=== PATIENT | female | born 1965 | race Caucasian/White ===

== ENCOUNTER 2022-10-04 10:55 | Outpatient (REF) | payer OTHER, SELFPAY ==
--- NOTE | ~2022-10-04 | XR_ITS ---
EXAMINATION: XR LUMBOSACRAL SPINE WITH OBLIQUES CLINICAL INFORMATION: Compression fracture COMPARISON: None available. TECHNIQUE: 4 views of the lumbar spine including flexion-extension views FINDINGS: There is a moderate old-appearing L4 vertebral body compression fracture. No acute fracture or dislocation. No instability on flexion-extension views. Mild disc space narrowing at L3-L4 and L5-S1. Lower lumbar spine facet arthritis. Left abdominal surgical clips. Question small left renal stone. XR/XR lumbar spine 4V min IMPRESSION: Moderate old L4 vertebral body compression fracture. Mild degenerative changes.
== END 2022-10-04 10:56 | disposition home or self-care (01) ==
LOC: HO.HOSX 10:55
PROVIDERS: PCP Internal Medicine; Visit Provider Physician Assistant
DX: S32.000A Wedge compression fracture of unspecified lumbar vertebra, initial encounter for closed fracture (principal)
CPT/HCPCS: 72110

== ENCOUNTER 2022-10-16 14:00 | Outpatient (REF) | payer OTHER, SELFPAY ==
--- NOTE | ~2022-10-16 | CT_ITS ---
EXAMINATION: CT LUMBAR SPINE WITHOUT CONTRAST CLINICAL INFORMATION: Wedge compression fracture. COMPARISON: Lumbar spine radiograph 10/04/2022. TECHNIQUE: Commercial Insulator images were obtained. CT imaging of the lumbar spine was performed without contrast. Data was reformatted into multiplanar images at the acquisition workstation. This CT examination was performed using dose optimization techniques as appropriate, variously including the following: *Automated exposure control *Adjustment of mA and/or kV according to patient size (this includes techniques or standardized protocols for targeted exams where dose is matched to indication/reason for exam; i.e. extremities or head) *Use of iterative reconstruction technique DLP; 762 mGy-cm FINDINGS: There is an old healed compression fracture of the L4 vertebral body with impaction of the upper endplate resulting in approximately 60% vertebral body height loss centrally and there is slight anterior wedging. There is buckling of the upper posterior corner of the L4 vertebral body causing indentation of the thecal sac. Vertebral heights are otherwise maintained. Alignment is normal.. There is loss of intervertebral disc height with associated hypertrophic disc osteophyte spurring and intervertebral vacuum disc phenomenon at multiple levels. Canal patency is not well assessed on this examination due to inherent limitations of CT without intrathecal contrast. There is at least mild canal stenosis at the level of L3-L4. There is also at least mild mass effect on the foraminal segment of the left L3 related to degenerative changes at L3-L4. Limited visualization of the retroperitoneal anatomy reveals chronic changes of a left nephrectomy. Psoas and paraspinal muscle groups are symmetric. CT/CT lumbar spine wo IV con IMPRESSION: There is an old healed compression fracture of the L4 vertebral body with impaction of the upper endplate resulting in approximately 60% vertebral body height loss centrally and slight anterior wedging. There is buckling of the upper posterior corner of the L4 vertebral body causing indentation of the thecal sac. Canal patency is not well assessed on this examination due to inherent limitations of CT without intrathecal contrast. There is at least mild canal stenosis at L3-L4. There is also at least mild mass effect on the foraminal segment of the left L3 related to degenerative changes at L3-L4.
== END 2022-10-16 14:01 | disposition home or self-care (01) ==
LOC: HO.CT 14:00
PROVIDERS: PCP Internal Medicine; Visit Provider Physician Assistant
DX: S32.000A Wedge compression fracture of unspecified lumbar vertebra, initial encounter for closed fracture (principal)
CPT/HCPCS: 72131

== ENCOUNTER → 2022-10-29 15:17 | Outpatient (BNVA) | payer OTHER, SELFPAY | PROVIDERS: PCP Internal Medicine; Visit Provider Physician Assistant ==

== ENCOUNTER 2023-01-21 13:58 | Outpatient (AMB) | payer OTHER, SELFPAY ==
--- NOTE | 2023-01-21 14:51 | A.SPINEOV_ITS ---
Intake Intake Visit Reasons: discuss surgery Intake Note: Ms. Cates is here today to discuss surgery. Assessment & Plan Assessment & Plan (1) Lumbar compression fracture: Code(s): S32.000A - Wedge compression fracture of unspecified lumbar vertebra, initial encounter for closed fracture Plan Dear colleague, On 01/21/2023, saw Verena Cates , who suffered a traumatic L4 burst fracture causing a mild deformity with severe back pain. For an extensive history and physical exam, I refer to the notes of my PA, Germán Head. To day we reviewed the CT scan in detail with the patient. She does have osteopenia/osteoporosis. I offered her an L4 kyphoplasty followed by an L3-L5 posterior instrumented fusion to stabilize the fracture and correct the deformity. She is scheduled for 03/18/2023. Thank you for letting me take care of your patient. Do not hesitate to call me with any questions or concerns. Thad Huertas MD, PhD Spine Fellowship Trained Neurosurgeon Director, [facility] Coding Level of Care Code Est Pt Level 2 (45278) Diagnoses Lumbar compression fracture S32.000A
== END 2023-01-21 15:16 | disposition home or self-care (01) ==
PROVIDERS: PCP Internal Medicine; Visit Provider Neurological Surgery
DX: S32.000A Wedge compression fracture of unspecified lumbar vertebra, initial encounter for closed fracture (principal)
CPT/HCPCS: 99212

== ENCOUNTER → 2023-01-21 13:58 | Outpatient (BNVA) | payer OTHER, SELFPAY | PROVIDERS: PCP Internal Medicine; Visit Provider Neurological Surgery ==

== ENCOUNTER 2023-03-18 07:23 | Inpatient (IN) | payer OTHER, SELFPAY ==
--- NOTE | 2023-03-05 | ECG_ITS ---
Test Reason : PREOP Blood Pressure : / mmHG Vent. Rate : 055 BPM Atrial Rate : 055 BPM P-R Int : 162 ms QRS Dur : 072 ms QT Int : 458 ms P-R-T Axes : 062 009 030 degrees QTc Int : 438 ms Sinus bradycardia Otherwise normal ECG No previous ECGs available Referred By: Stephanie Carbajal Electronically Signed By:FRANK LENTZ MD
[2023-03-05 12:41] VITALS: BP 130/84; PULSE 64; RESP 18; O2SAT 97; BMI 30.3
--- NOTE | 2023-03-05 13:00 | P.CONAN_ITS ---
Documented by User: Stephanie Carbajal NP 03/17/23 10:16 HPI - Anesthesia Eval Consult details Narrative: 58yo F for L4 Kyphoplasty,L3-5 Instrumented Fusion w/Pedical Screws, No recent illness No CP/SOB with walking. Any further activity limited by back pain Kidney donor (~12 years ago) / CKD listed in hx but nml Creat Thyroid disease. Controlled on levothyroxine PMFSH Active Problems Active Problems: All Active Problems (Updated 03/05/23 @ 12:19 by Mara Collins RN) Lumbar compression fracture (Acute) Past Medical History Medical History Back pain Arthritis Thyroid disease Kidney donor CKD (chronic kidney disease) stage 3, GFR 30-59 ml/min Chronic sinusitis Glaucoma Urinary incontinence Lumbar compression fracture Family History Family history of problems with anesthesia: Yes (Daughter with PONV) Surgical History Surgical History Hx of foot surgery H/O local excision of skin lesion Hx of section Hx of tonsillectomy History of nephrectomy, left H/O colonoscopy S/P anal fissurectomy History of Problems with Anesthesia: No Social History Are you a primary daycare director to a significant other at home: No Do you presently have visiting nurse or other home services: No Patient Tobacco Use Status: Never used Tobacco Use of substances other than those prescribed or required for medical reasons: No Have you been hit, kicked, punched, or otherwise hurt by someone within the past year? If so, by whom?: No Are you DNR?: No Advance Directives: No Advance Directives Information Provided: No Advance Directives on File: No Recently lost weight without trying: No Eating poorly because of decreased appetite: No Nutrition Risks: No Nutritional Risk Patient : No : No Meds Allergies Allergy/AdvReac Type Severity Reaction Status Date / Time bee pollen [bee stings] Allergy Swelling Verified 03/05/23 06:41 NSAIDS (Non-Steroidal Allergy Unknown Verified 03/05/23 06:41 Anti-Inflamma Home Medications Medication Instructions Recorded Confirmed Last Taken Type Allergy sublingual 03/05/23 03/17/23 History alendronate 70 mg tablet 70 mg PO QWEEK 03/05/23 03/05/23 03/16/23 History ascorbic acid (vitamin C) 500 mg 500 mg PO DAILY 03/05/23 03/05/23 03/11/23 History tablet (Vitamin C) cetirizine 10 mg tablet 10 mg PO BEDTIME 03/05/23 03/05/23 03/14/23 History cholecalciferol (vitamin D3) 25 25 mcg PO DAILY 03/05/23 03/05/23 03/11/23 History mcg (1,000 unit) tablet (Vitamin D3) cyanocobalamin (vitamin B-12) 1,000 mcg PO BEDTIME 03/05/23 03/05/23 03/11/23 History 1,000 mcg tablet (Vitamin B-12) epinephrine 0.3 mg/0.3 mL 0.3 mg IM DIRECTED 03/05/23 03/05/23 Unknown History injection, auto-injector fiber 1 tab PO DAILY 03/05/23 03/05/23 03/11/23 History fluocinolone 0.025 %-niacinamide 4 1 appl topical DAILY PRN Skin 03/05/23 03/05/23 Unknown History % topical cream Irritation fluticasone propionate 50 2 spray intranasal DAILY 03/05/23 03/05/23 03/17/23 History mcg/actuation nasal spray,suspension lactobacillus combination no.4 3 3,000 mmu cells PO DAILY 03/05/23 03/05/23 03/15/23 History billion cell capsule (Probiotic) levothyroxine 88 mcg tablet 88 mcg PO DAILY 03/05/23 03/05/23 03/18/23 05:00 History lysine 1,000 mg tablet 1,000 mg PO DAILY 03/05/23 03/05/23 03/11/23 History cqnenzco-xlkj-cfvt 8 mg-folic 400 1 tab PO DAILY 03/05/23 03/05/23 03/11/23 History mcg-K 50 mcg-lutein 300 mcg tablet (Multivitamin Women 50 Plus) bz-8-hkt-epa-fish oil-vit D3 300 1 cap PO DAILY 03/05/23 03/05/23 03/11/23 History mg-1,000 mg-1,000 unit capsule (Fish Oil-Vit D3) zinc acetate 50 mg (zinc) capsule 50 mg PO BEDTIME 03/05/23 03/05/23 Unknown History Exam Exam Date and Time: March 05, 2023 1300 Height,Weight and Vital Signs: Height 5 ft 6 in Weight 85.275 kg Last Vital Signs Pulse 64 03/05/23 12:41 Resp 18 03/05/23 12:41 BP 130/84 03/05/23 12:41 Pulse Ox 97 03/05/23 12:41 O2 Del Method Room Air 03/05/23 12:41 Pertinent Lab Results Pertinent Lab Results: Lab Results 03/05/23 Range/Units 13:22 WBC 8.2 (4.8-10.8) X10*3/uL RBC 4.46 (4.20-5.50) X10*6/uL Hgb 13.3 (12.0-16.0) g/dl Hct 41.3 (37.0-47.0) % MCV 92.6 (80.0-98.0) fL MCH 29.8 (27.0-33.0) pg MCHC 32.2 (31.0-35.0) g/dl RDW 13.3 (11.0-16.0) % Plt Count 376 (160-400) X10*3/uL MPV 9.9 (9.4-12.3) fL Absolute Nucleated RBC 0.000 (0.0-0.012) X10*3/uL Nucleated RBC % (auto) 0.0 (0.0-0.2) /100WBC Sodium 143 (135-145) mmol/L Potassium 4.4 (3.3-5.1) mmol/L Chloride 107 (96-108) mmol/L Carbon Dioxide 29 (22-29) mmol/L Anion Gap 11 L (12-20) BUN 19 H (9-16) mg/dL Creatinine 0.96 (0.5-1.4) mg/dL Estim Creat Clear Calc 71.9 Estimated GFR > 60 Random Glucose 85 (60-115) mg/dL Calcium 9.7 (8.4-10.2) mg/dL Narrative Narrative: EKG 02/2023 Vent. Rate : 055 BPM Atrial Rate : 055 BPM P-R Int : 162 ms QRS Dur : 072 ms QT Int : 458 ms P-R-T Axes : 062 009 030 degrees QTc Int : 438 ms Sinus bradycardia Otherwise normal ECG No previous ECGs available Airway Mallampati Class: II TM Dist: >3cm Neck ROM: Full Loose/Missing/Broken Teeth: No (crowns on sides and back) Heart: RRR Lungs: CTAB Assessment and Plan Assessment Anesthesia Assessment: Anesthesia Plan Discussed and PAT Visit Final Anesthetic Review Family History of Problems with Anesthesia: Yes (Daughter with PONV) History of Problems with Anesthesia: No Documented by User: Wilbert Bishop MD 03/18/23 08:51 PMFSH Past Medical History Medical History Back pain Arthritis Thyroid disease Kidney donor CKD (chronic kidney disease) stage 3, GFR 30-59 ml/min Chronic sinusitis Glaucoma Urinary incontinence Lumbar compression fracture Surgical History Surgical History Hx of foot surgery H/O local excision of skin lesion Hx of section Hx of tonsillectomy History of nephrectomy, left H/O colonoscopy S/P anal fissurectomy Social History Are you a primary daycare director to a significant other at home: No Do you presently have visiting nurse or other home services: No Patient Tobacco Use Status: Never used Tobacco Use of substances other than those prescribed or required for medical reasons: No Have you been hit, kicked, punched, or otherwise hurt by someone within the past year? If so, by whom?: No Are you DNR?: No Advance Directives: No Advance Directives Information Provided: No Advance Directives on File: No Recently lost weight without trying: No Eating poorly because of decreased appetite: No Nutrition Risks: No Nutritional Risk Patient : No : No Meds Allergies Allergy/AdvReac Type Severity Reaction Status Date / Time bee pollen [bee stings] Allergy Swelling Verified 03/05/23 06:41 NSAIDS (Non-Steroidal Allergy Unknown Verified 03/05/23 06:41 Anti-Inflamma Home Medications Medication Instructions Recorded Confirmed Last Taken Type Allergy sublingual 03/05/23 03/17/23 History alendronate 70 mg tablet 70 mg PO QWEEK 03/05/23 03/05/23 03/16/23 History ascorbic acid (vitamin C) 500 mg 500 mg PO DAILY 03/05/23 03/05/23 03/11/23 History tablet (Vitamin C) cetirizine 10 mg tablet 10 mg PO BEDTIME 03/05/23 03/05/23 03/14/23 History cholecalciferol (vitamin D3) 25 25 mcg PO DAILY 03/05/23 03/05/23 03/11/23 History mcg (1,000 unit) tablet (Vitamin D3) cyanocobalamin (vitamin B-12) 1,000 mcg PO BEDTIME 03/05/23 03/05/23 03/11/23 History 1,000 mcg tablet (Vitamin B-12) epinephrine 0.3 mg/0.3 mL 0.3 mg IM DIRECTED 03/05/23 03/05/23 Unknown History injection, auto-injector fiber 1 tab PO DAILY 03/05/23 03/05/23 03/11/23 History fluocinolone 0.025 %-niacinamide 4 1 appl topical DAILY PRN Skin 03/05/23 03/05/23 Unknown History % topical cream Irritation fluticasone propionate 50 2 spray intranasal DAILY 03/05/23 03/05/23 03/17/23 History mcg/actuation nasal spray,suspension lactobacillus combination no.4 3 3,000 mmu cells PO DAILY 03/05/23 03/05/23 03/15/23 History billion cell capsule (Probiotic) levothyroxine 88 mcg tablet 88 mcg PO DAILY 03/05/23 03/05/23 03/18/23 05:00 History lysine 1,000 mg tablet 1,000 mg PO DAILY 03/05/23 03/05/23 03/11/23 History zvgchadb-vvlk-laqn 8 mg-folic 400 1 tab PO DAILY 03/05/23 03/05/23 03/11/23 History mcg-K 50 mcg-lutein 300 mcg tablet (Multivitamin Women 50 Plus) ds-7-gsd-epa-fish oil-vit D3 300 1 cap PO DAILY 03/05/23 03/05/23 03/11/23 History mg-1,000 mg-1,000 unit capsule (Fish Oil-Vit D3) zinc acetate 50 mg (zinc) capsule 50 mg PO BEDTIME 03/05/23 03/05/23 Unknown History Assessment and Plan Final Anesthetic Review NPO: Yes ASA Class: II Final Preanesthetic Review: No Changes in Pt Med Stat, Meds/Allgs Chart Reviewed, Consent Obtained/Reviewed and Anes Risks/Benef Reviewed Patient Risk: Low Procedure Risk: Low Anesthetic Plan Anesthetic Plan: GA Disposition: Standard PACU
[2023-03-05 13:40] LABS: Hematocrit 41.3 % (37.0-47.0); Hemoglobin 13.3 g/dl (12.0-16.0); Mean Corpuscular HGB Conc 32.2 g/dl (31.0-35.0); Mean Corpuscular Hemoglobin 29.8 pg (27.0-33.0); Mean Corpuscular Volume 92.6 fL (80.0-98.0); Mean Platelet Volume 9.9 fL (9.4-12.3); Platelet Count 376 X10*3/uL (160-400); Red Blood Count 4.46 X10*6/uL (4.20-5.50); Red Cell Distribution Width 13.3 % (11.0-16.0); White Blood Count 8.2 X10*3/uL (4.8-10.8)
[2023-03-05 14:51] LABS: Anion Gap 11 (12-20); Blood Urea Nitrogen 19 mg/dL (9-16); Calcium 9.7 mg/dL (8.4-10.2); Carbon Dioxide 29 mmol/L (22-29); Chloride 107 mmol/L (96-108); Creatinine Clr Calc Pharmacy 71.9; Estimated Glomerular Filt Rate > 60; Glucose Random 85 mg/dL (60-115); Potassium 4.4 mmol/L (3.3-5.1); Sodium 143 mmol/L (135-145)
[2023-03-18] VITALS (16 sets, daily range): BP systolic 104–121; BP diastolic 22–74; PULSE 56–78; RESP 14–19; TEMP 36.2–37; O2SAT 93–99; BMI 29.7; BMI 32.1
--- NOTE | ~2023-03-18 | FL_ITS ---
EXAMINATION: XR FLUOROSCOPY WITH IMAGES CLINICAL INFORMATION: L4 kyphoplasty, L3-L5 instrumented fusion. COMPARISON: CT lumbar spine 05/08/2022 and lumbar spine radiographs 10/04/2022. TECHNIQUE: Fluoroscopy Supervised By: Dr. Jamison Huertas. Fluoroscopy Time: 1.7 minutes. Cumulative Dose: 131 mGy. DAP: 1.959 mGy-m2. Images: 2. FINDINGS: Two films demonstrate posterior pedicular screws from L3 through L5 with kyphoplasty cement in the L4 vertebral body. FL/FL guidance in OR IMPRESSION: Fluoroscopy provided for L3-L5 instrumented fusion. Please see Dr. Peewee Huertas' report for complete details.
[2023-03-18] MEDS: Gabapentin 300 MG CAPSULE PO (06:50)
[2023-03-18] MEDS: methocarbamoL 750 MG TABLET PO (06:50)
[2023-03-18] MEDS: Lactated Ringers 1,000 ML 100 ML IVCONT (07:22)
--- NOTE | 2023-03-18 07:23 | MHC.SHP ---
Pre-Procedural Eval Section A Date of Service: 03/18/23 The patient is an INPATIENT: No Changes since office visit: No Cold of Flu in the past 2 weeks, No New Medical Problems, No Changes in Medication and No Patient answered all questions The History & Physical has been completed within 30 days and I have reviewed it.: No Section B Chief Complaint: Wedge compression fracture of unspecified lumbar Allergies: Allergies Allergy/AdvReac Type Severity Reaction Status Date / Time bee pollen [bee stings] Allergy Swelling Verified 03/05/23 06:41 NSAIDS (Non-Steroidal Allergy Unknown Verified 03/05/23 06:41 Anti-Inflamma Review of Systems Sugical H&P ROS: Negative: Constitution, Cardiovascular, Respiratory, Neurological, Psychiatric, Hem-Onc, Allergic/Immunologic, Gastrointestinal, Genitourinary, Musculoskeletal, Integumentary, Endocrine and Eyes/Ears/Nose/Throat Exam Surgical H&P Exam: Not Evaluated: HEENT, Not Evaluated: Heart, Not Evaluated: Lungs, Not Evaluated: Extremities, Not Evaluated: Abdomen, Not Evaluated: Skin and Not Evaluated: Neurological Plan Diagnosis/Plan: Unchanged I have reviewed the history and physical and performed a pertinent physical examination on my patient. No changes have occurred unless specified. L4 kyphoplasty, L3-5 pedicle screws Time Spent With Patient Time: Total time managing care of this patient today __11.5__ minutes.
--- OUTSIDE RECORDS SUMMARY | 2023-03-18 07:34 | XMS_ITS | Continuity of Care Document ---
Author Name Unknown Organization [facility] [employer] Address [address], [address] [place] [address]- Care Team Providers Care Quality Measurement Specialist Name Role Phone Leon SORIANO, Sophie Ceballos Primary Care Phys[place] [facility] [place] [facility] [address], [address] [place] [address]- Allergies, Adverse Reactions, Alerts No Known Allergies Immunizations Given and Recorded Vaccine Date Status Refusal Reason SARS-CoV-2 (COVID-19) mRNA-1273 vaccine 07/22/20 G iven SARS-CoV-2 (COVID-19) mRNA-1273 vaccine 06/24/20 G iven tetanus-diphtheria toxoids (Td) 04/22/99 Given Medications Fiber Choice 3 times a day, 0 Refills, Maintenance, 04/01/18 10:34:00 EST Start Date: 04/01/18 Status: Ordered fluconazole 150 mg oral tablet 1 tablet = 150 mg, By Mouth, Once, Once, repeat in 72 hours, # 2 tablet, 1 Refills, Soft Stop, 04/02/18 9:54:47 EST, Tablet Start Date: 04/02/18 Status: Ordered levothyroxine 0.15 mg oral tablet 1, tablet, By Mouth, Daily, # 90 tablet, 3 Refills Start Date: 02/27/09 Stop Date: 02/22/10 Status: Ordered Mirena 52 mg intrauteral device 1 each = 52 mg, Once, date inserted 12/2013 lot number [id number], 0 Refills, Maintenance, 01/04/15 18:59:21 Start Date: 01/04/15 Status: Ordered Multivitamin Daily, 0 Refills, Maintenance, 03/08/16 11:10:02 Start Date: 03/08/16 Status: Ordered Probiotic Formula oral capsule 1 capsule, By Mouth, Daily, 0 Refills, Maintenance, 03/08/16 11:10:32 Start Date: 03/08/16 Status: Ordered Zyrtec-D 1 tablet, Daily, 0 Refills, Maintenance, 08/16/16 15:13:50 Start Date: 08/16/16 Status: Ordered Problem List Condition Confirmation Course Effective Dates Status H ealth Status Informant Allergic rhinitis Confirmed Active Anal fissurectomy Confirmed 1994 Active Bunionectomy, Left Confirmed 1998 Active DUB - Dysfunctional uterine bleeding Confirmed Active ISABELA (stress urinary incontinence, female) Confirmed Active Hypothyroidism Confirmed Active Perimenopausal Confirmed Active Tonsillectomy Confirmed 1986 Active Urinary incontinence Confirmed Active Vulvar intraepithelial neoplasia, grade III Confirmed Active Social History Social History Type Response Smoking Status Never (less than 100 in lifetime) entered on: 05/04/19 Sex Patient Care team information Personnel Name: Leon SORIANO, Sophie Ceballos Address: Address: [address] [place] [address] [place] [id number]
--- OUTSIDE RECORDS SUMMARY | 2023-03-18 07:34 | XMS_ITS | Continuity of Care Document ---
Author Name Unknown Organization [facility] [employer] Address [address], [address] [place] [address]- Care Team Providers Care Merchandise Adjustment Clerk Name Role Phone Sophie Quintero MD Primary Care Phys[id number] 05[facility]05/[facility] [employer] [facility] [address], [address] [place] [address]- Attending Physician: Fernanda Eastman MD Allergies, Adverse Reactions, Alerts Substance Reaction Severity Status NKA Active Immunizations Given and Recorded Vaccine Date Status Refusal Reason tetanus-diphtheria toxoids (Td) 04/22/99 Given Medications Fiber [...] mg, Once, date inserted 12/2013 lot number [id number], 0 Refills, Maintenance, 01/04/15 18:59:21 Start Date: 01/04/15 Status: Ordered Multivitamin Daily, 0 Refills, Maintenance, 03/08/16 11:10:02 Start Date: 03/08/16 Status: Ordered Probiotic Formula oral capsule 1 capsule, By Mouth, Daily, 0 Refills, Maintenance, 03/08/16 11:10:32 Start Date: 03/08/16 Status: Ordered Zyrtec-D 1 tablet, Daily, 0 Refills, Maintenance, 08/16/16 15:13:50 Start Date: 08/16/16 Status: Ordered Problem List Condition Effective Dates Status Health Status Inform ant Allergic rhinitis(Confirmed) Active Anal fissurectomy(Confirmed) 1994 Active Bunionectomy, Left(Confirmed) 1998 Active DUB - Dysfunctional uterine bleeding(Confirmed) Active ISABELA (stress urinary incontin ence, female)(Confirmed) Active Hypothyroidism(Confirmed) Active IUD (intrauterine device) in place 01/04/2014(Confirmed) 01/04/14 Active Perimenopausal(Confirmed) Active Tonsillectomy(Confirmed) 1986 Active Urinary incontinence(Confirmed) Active Vulvar intraepithelial neopl carri, grade III(Confirmed) Active Social History Social History Type Response Smoking Status Never (less than 100 in lifetime) entered on: 05/04/19 Sex
--- OUTSIDE RECORDS SUMMARY | 2023-03-18 07:34 | XMS_ITS | Continuity of Care Document ---
Author Name Unknown Organization [facility] [employer] Address [address], [address] [place] [address]- Care Team Providers Care Adding Machine Mechanic Name Role Phone Leon SORIANO, Sophie Ceballos Primary Care Physician [place] [facility] [place]22 - 05/30/22 [facility] [employer] [address] [place] [address]- Attending Physician: Admtr, Xenia Allergies, Adverse Reactions, Alerts No Known Allergies Immunizations Given and Recorded Vaccine Date Status Refusal Reason SARS-CoV-2 (COVID-19) mRNA-1273 vaccine 4/3/21 G iven SARS-CoV-2 (COVID-19) mRNA-1273 vaccine 3//21 G iven tetanus-diphtheria toxoids (Td) 04/22/99 Given [...] Date: 02/27/09 Stop Date: 02/22/10 Status: Ordered Multivitamin Daily, 0 Refills, Maintenance, 03/08/16 11:10:02 Start Date: 03/08/16 Status: Ordered nystatin topical [id number] u/gm cream 1 application, Topically, 2 times a day, PRN Itch, # 30 Gm, 2 Refills, Maintenance, 04/30/22 16:36:00 EST, Cream, [id number], Partial fill upon patient request if the prescription is for a schedule II opioid drug., 1 application Topically 2 ti... Start Date: 04/30/22 Status: Ordered Probiotic Formula oral capsule 1 [...] incontinence, female) Confirmed Active Hypothyroidism Confirmed Active Obese class I Confirmed Active Perimenopausal Confirmed Active Tonsillectomy Confirmed 1986 Active Urinary incontinence Confirmed Active Vulvar intraepithelial neoplasia, grade III Confirmed Active Social History Social History Type Response Smoking Status Never (less than 100 in lifetime) entered on: 05/04/19 Sex Patient Care team information Care Team Personnel Name: Sophie Quintero MD Position: [facility] Physician (General Medicine) Member Role: PCP Address: Address: [address] [place] [address]- Care Team Related Persons Name: ILEANA ROMERO Address: [address] [place] [address]
--- OUTSIDE RECORDS SUMMARY | 2023-03-18 07:34 | XMS_ITS | Continuity of Care Document ---
Author Name Unknown Organization [facility] [employer] Address [address], [address] [place] [address]- Care Team Providers Care Web Design Intern Name Role Phone Sophie Quintero MD Primary Care Physician [phone] [place] [facility] [place] 12[place] [address], [address] [place] [address]- Attending Physician: Jaren SORIANO [OB], Fernanda Hart Referring Physician: Sophie Quintreo MD Allergies, Adverse Reactions, Alerts Substance Reaction [...] mg, Once, date inserted 12/2013 lot number [id number], 0 Refills, Maintenance, 01/04/15 18:59:21 Start Date: 01/04/15 Status: Ordered Multivitamin Daily, 0 Refills, Maintenance, 03/08/16 11:10:02 Start Date: 03/08/16 Status: Ordered nystatin topical [id number] u/gm cream 1 application, Topically, 3 times a day, # 30 Gm, 3 Refills, Acute 11/29/21 9:06:00 EDT, 11/29/20 9:06:00 EDT, Cream, [id number], Partial fill upon patient request if the prescription is for a schedule II opioid drug., 1 application T... Start Date: 11/29/20 Stop Date: 11/29/21 Status: Ordered Probiotic Formula oral capsule 1 [...] urinary incontin ence, female)(Confirmed) Active Hypothyroidism(Confirmed) Active Perimenopausal(Confirmed) Active Tonsillectomy(Confirmed) 1986 Active Urinary incontinence(Confirmed) Active Vulvar intraepithelial neopl carri, grade III(Confirmed) Active Vital Signs Most recent to oldest [Reference Range]: 1 Height 168.5 cm (11/29/20 8:49 AM) Weight 90.38 kg (11/29/20 8:49 AM) Body Mass Index [18.5-24.99] 31.83 *>HHI* (11/29/20 8:49 AM) Blood Pressure [90-138/55-84 mm Hg] 131/ 78mm Hg (11/29/20 8:49 AM) Blood pressure sites Arm, right (11/29/20 8:49 AM) Weight Obtained Via Standing scale (11/29/20 8:49 AM) Social History Social History Type Response Smoking Status Never (less than 100 in lifetime) entered on: 05/04/19 Sex
--- OUTSIDE RECORDS SUMMARY | 2023-03-18 07:34 | XMS_ITS | Continuity of Care Document ---
Author Name Unknown Organization [facility] Address [address] [facility], [address] [place] [address]- Care Team Providers Care Batch Plant Supervisor Name Role Phone Leon SORIANO, Sophie Ceballos Primary Care Physician [place] [facility] [place] [facility] [address] [facility], [address] [place] [address]- Allergies, Adverse Reactions, Alerts Substance Reaction Severity [...] mg, Once, date inserted 12/2013 lot number [id number], 0 Refills, Maintenance, 01/04/15 18:59:21 Start Date: [...]
--- OUTSIDE RECORDS SUMMARY | 2023-03-18 07:34 | XMS_ITS | Continuity of Care Document ---
Author Name Unknown Organization [facility] Lydia [facility] Address [address] [place] [address], [address] [place] [address]- Care Team Providers Care Shop Clerk Name Role Phone Leon SORIANO, Sophie Ceballos Primary Care Physician [phone] [id number] [address] [facility], [address] [place] [address]- Attending Physician: Jaren SORIANO [OB], Fernanda Hart Referring Physician: Rukhsana Salinas Allergies, Adverse Reactions, Alerts No Known Allergies Immunizations Given and Recorded Vaccine Date Status Refusal Reason SARS-CoV-2 (COVID-19) mRNA-1273 vaccine 21 G iven SARS-CoV-2 (COVID-19) mRNA-1273 vaccine 06/24/20 [...] Start Date: 03/08/16 Status: Ordered nystatin topical [id number] u/gm cream 1 application, Topically, 2 times a day, PRN Itch, # 30 Gm, 2 Refills, Maintenance, 04/30/22 16:36:00 EST, Cream, [id number], Partial fill upon patient request if the [...] Vulvar intraepithelial neoplasia, grade III Confirmed Active Vital Signs Most recent to oldest [Reference Range]: 1 Height 168.5 cm (04/30/22 4:21 PM) Weight 87 kg (04/30/22 4:21 PM) Pulse Rate [55-90 bpm] 75 bpm (04/30/22 4:21 PM) Body Mass Index [18.5-24.99 kg/m2] 30.64 kg/m2 *>HHI* (04/30/22 4:21 PM) Blood Pressure [90-138/55-84 mm Hg] 124/ 70mm Hg (04/30/22 4:21 PM) Respiratory Rate [16-30 br/min] 19 br/mi n (04/30/22 4:21 PM) Blood pressure sites Arm, right (04/30/22 4:21 PM) Weight Obtained Via Standing scale (04/30/22 4:21 PM) Social History Social History Type Response Smoking Status Never (less than 100 in lifetime) entered on: 05/04/19 Sex Note * Gem Méndez: PERFORM, SIGN, VERIFY Event Display: Patient Education/Instruction Authored Date: [id number] [facility] *[facility] G[employer] T[employer]ATER Clinical Summary Name HAJDAMOWICZ, YUNIEL Age 57 Years 1965 PCP Sophie Quintero MD PCP Visit Date 04/30/2022 15:59:00 Additional Instructions: Scheduled Appointments?? Future Appointments ?No Future Appointments Scheduled Follow-Up Instructions ?? Diagnosis Menopausal and female climacteric states; Encounter for gynecological examination (general) (routine) without abnormal findings Medications: Please continue your medications until treatment is completed or stopped by your provider. Discuss any questions related to medications with your provider. New Medications [id number], [address] [place] [id number], [phone] Nystatin Topical (nystatin topical 890483 u/gm cream) 1 javi Topically twice a day as needed Itch. Refills: 2. Next Dose: Medications to Continue with No Changes These medications were not printed or sent to your pharmacy bifidobacterium-lactobacillus (Probiotic Formula oral capsule) 1 capsule Oral Daily. Next Dose: Cetirizine-Pseudoephedrine (Zyrtec-D) 1 tab(s) Daily. Next Dose: Fluconazole (fluconazole 150 mg oral tablet) 1 tab(s) Oral once. Once, repeat in 72 hours. Refills:1. Next Dose: Inulin (Fiber Choice) 3 times a day. Next Dose: Levothyroxine (levothyroxine 0.15 mg oral tablet) 1 tab(s) Oral Daily for 90 Days. Refills: 3. Next Dose: Multivitamin Daily. Next Dose: No Longer Take the Following Medications Levonorgestrel (Mirena 52 mg intrauteral device) 1 Each once. date inserted 12/2013 lot number [id number]. Allergy Info:?? NKA Medications Given This Visit Future Orders ?MM Digital Mammo Screening? Order Date:05/31/23?- Complete by?06/28/23 Vital Signs Height 168.5 cm Weight 87 kg BMI 30.64 kg/m2 Blood Pressure 124 mm Hg/70 mm Hg Temperature Pulse Rate 75 bpm Respiratory Rate 19 br/min 02 Sat Mode of Delivery / You can now view a summary of your hospital visit from the comfort of your home through a free online portal called [employer]. [employer] is a website that allows you to securely view your medical information including discharge summary, medications and follow-up visits. ??You can alsosend a secure electronic message to your doctor???s office to request appointments, renew medications or just ask a question. You can enroll at [email or web address] or register during your next office visit. Disclaimer:?? The information provided is of a general nature and is intended to be used in conjunction with the recommendations and advice of your health care practitioner. ??Every effort has been made to ensure that the information provided is accurate and complete at the time it is provided to you however, as your needs change, or, as new ??information becomes available, different or additional instructions may be required. If you have questions, please consult with your primary care provider or pharmacist, as appropriate. ??This information is not intended to serve as substitution for assessment and evaluation by a qualified health care provider. If you do not have a primary care provider, you may find a [facility] provider by calling [facility] at [phone]. For information about the plan of care including goals and instructions for your diagnosis, please see the patient education orders section of this document. Patient Education Materials?? The content of this educational material or handout may have been modified, supplemented, or adapted from its original content and format to support your individualized medical care. Please follow instructions discussed with your provider during this visit as well as any education documents you were given today. Patient Care team information Care Team Personnel Name: Sophie Quintero MD Position: [facility] Physician (General Medicine) Member Role: PCP Address: Address: [address] [place] [address] [place] [address]- Care Team Related Persons Name: ILEANA ROMERO Address: home [address] [place] [address] [place] [id number]
--- OUTSIDE RECORDS SUMMARY | 2023-03-18 07:34 | XMS_ITS | Continuity of Care Document ---
Author Name Unknown Organization [facility] Address [address] [facility], [address] [place] [address]- Care Team Providers Care Product Development Assistant Name Role Phone Leon SORIANO, Sophie Ceballos Primary Care Physician [place] [facility] [place]20 - 12/29/20 [facility] [employer] [facility] [address] [facility], [address] [place] [address]- Attending Physician: Admtr, Ar8 Allergies, Adverse Reactions, Alerts Substance Reaction Severity [...] mg, Once, date inserted 12/2013 lot number [id number], 0 Refills, Maintenance, 01/04/15 18:59:21 Start Date: 01/04/15 Status: Ordered Multivitamin Daily, 0 Refills, Maintenance, 03/08/16 11:10:02 Start Date: 03/08/16 Status: Ordered nystatin topical [id number] u/gm cream 1 application, Topically, 3 times a day, # 30 Gm, 3 Refills, Acute 11/29/21 9:06:00 EDT, 11/29/20 9:06:00 EDT, Cream, [id number], Partial fill upon patient request if the [...]
--- OUTSIDE RECORDS SUMMARY | 2023-03-18 07:34 | XMS_ITS | Continuity of Care Document ---
Author Name Unknown Organization [facility] Address [address] [facility], [address]t [place] [address]- Care Team Providers Care Showroom Salesperson Name Role Phone Sophie Quintero MD Primary Care Physician [id number] Date[facility]/04/19 - [facility]11/19 [facility] [address] [facility], [address]th [place] [address]- Attending Physician: Fernanda Eastman MD Referring Physician: Sophie Quintero MD Allergies, Adverse Reactions, Alerts Substance Reaction [...] mg, Once, date inserted 12/2013 lot number [id number], 0 Refills, Maintenance, 01/04/15 18:59:21 Start Date: [...] oldest [Reference Range]: 1 Height 168.5 cm (05/04/19 2:39 PM) Weight 87.2 kg (05/04/19 2:39 PM) Body Mass Index [18.5-24.99] 30.71 *>HHI* (05/04/19 2:39 PM) Blood Pressure [90-138/55-84 mm Hg] 112/ 75mm Hg (05/04/19 2:39 PM) Blood pressure sites Arm, right (05/04/19 2:39 PM) Weight Obtained Via Standing scale (05/04/19 2:39 PM) Social History Social History Type Response Smoking Status Never (less than 100 in lifetime) entered on: 05/04/19 Sex
--- OUTSIDE RECORDS SUMMARY | 2023-03-18 07:34 | XMS_ITS | Continuity of Care Document ---
Author Name Unknown Organization [facility] ter Address [address] [place] [address]- Care Team Providers Care Wax Ball Molder Name Role Phone Sophie Quintero MD Primary Care Physician En[place] [facility] [place] Date(s): 05/01/19 - 05/08/[address] [address]- [facility] Attending Physician: Serafin Abel MD Allergies, Adverse Reactions, Alerts Substance Reaction [...] mg, Once, date inserted 12/2013 lot number [id number], 0 Refills, Maintenance, 01/04/15 18:59:21 Start Date: [...]
--- OUTSIDE RECORDS SUMMARY | 2023-03-18 07:34 | XMS_ITS | Continuity of Care Document ---
Author Name Unknown Organization [facility] [employer] Address [address] [place] [address], [address] [place] [address]- Care Team Providers Care All Around Patternmaker Name Role Phone Leon SORIANO, Sophie Ceballos Primary Care Physician [place] [facility] [place]): [place] 11/08/20 [facility] [address] [facility], [address] [place] [address]- Attending Physician: Jaren SORIANO, Fernanda Hart Allergies, Adverse Reactions, Alerts Substance Reaction Severity [...] mg, Once, date inserted 12/2013 lot number [id number], 0 Refills, Maintenance, 01/04/15 18:59:21 Start Date: [...]
--- OUTSIDE RECORDS SUMMARY | 2023-03-18 07:34 | XMS_ITS | Continuity of Care Document ---
Author Name Unknown Organization [facility] Address [address] [facility], [address] [place] [address]- Care Team Providers Care Meat Specialist Name Role Phone Leon SORIANO, Sophie Ceballos Primary Care Physician [phone] Encounter [place] Date(s): 01/02/22 - 02/01/22 [facility]ati [facility]Se[facility] [employer] [address] [facility], [address] [place] [address]- Allergies, Adverse Reactions, Alerts No Known Allergies [...] mg, Once, date inserted 12/2013 lot number [id number], 0 Refills, Maintenance, 01/04/15 18:59:21 Start Date: [...] Sex Patient Care team information Personnel Name: Sophie Quintero MD Address: Address: [address] [place] [address]
--- OUTSIDE RECORDS SUMMARY | 2023-03-18 07:34 | XMS_ITS | Continuity of Care Document ---
Author Name Unknown Organization [facility] [employer] Address [address] [facility], [address] [place] [address]- Care Team Providers Care Negative [place] Apprentice Name Role Phone Sophie Quintero MD Primary Care Physician En[facility] [id number] Date(s): 04/05/19 - 04/15/19 [facility] [address] [facility], [address] [place] [address]- Attending Physician: Admtr, Xenia Allergies, Adverse Reactions, Alerts Substance Reaction Severity Status NKA Active Immunizations Given and Recorded Vaccine Date Status Refusal Reason tetanus-diphtheria toxoids (Td) 04/22/99 Given Medications Fiber Choice 3 times a day, 0 Refills, Maintenance, 04/01/18 10:34:00 EST Start Date: 04/01/18 Status: Ordered Flonase 1 sprays, Daily, 0 Refills, Maintenance, 03/08/16 11:10:08 Start Date: 03/08/16 Status: Ordered fluconazole 150 mg oral tablet [...] mg, Once, date inserted 12/2013 lot number [id number], 0 Refills, Maintenance, 01/04/15 18:59:21 Start Date: [...] (less than 100 in lifetime) entered on: 04/01/18 Sex
--- NOTE | 2023-03-18 07:37 | PHA.MEDREC ---
Pharmacy Consult ? Medication Reconciliation Pharmacy has reviewed the medication reconciliation done by RN.
--- NOTE | 2023-03-18 09:40 | W.PM.OPN ---
Operative Note Operative Note Date of Service: 03/18/23 Narrative: Preop diagnosis: L4 traumatic burst fracture Postop diagnosis: Same Procedure: L3-L5 posterior instrumented fusion; L4 kyphoplasty Surgeon: Thad Huertas MD Assist: Germán ORELLANA Description of procedure: this 58-year-old female suffered an L4 burst fracture. She continues to suffer from severe amount of back pain. She also has osteoporosis. It was decided to offer her a posterior L3-L5 posterior instrumented fusion and an L4 kyphoplasty to stabilize the fracture and posterior column. The procedure complications were explained. The patient was consented. The patient was brought to the operating room and endotracheally intubated. The patient was turned in a prone position on the Marty spine table. Two C- arms were installed for fluoroscopy. Prepping and draping were done followed by time-out. Two paramedian incisions were made lateral from the L3-L5 pedicles. the following steps were done for pedicle screw placement; First a transpedicular trajectory was made into the vertebral body with a tap; a K-wire was inserted. The steps were done for the bilateral L3 and L4 pedicles. Then preparations were taken for the kyphoplasty. A Jamshidi needle was inserted and advanced transpedicular into the vertebral body. This was done bilaterally. A drill was advanced towards the posterior 1/3 of the vertebral body through the canula bilaterally. Accordingly, dilating balloons were inserted bilaterally and inflated under AP and lateral fluoroscopic guidance. The balloons were deflated and the cavities were filled with cement under fluoroscopic guidance. No extra vertebral leakage occurred . K-wires were placed through the Jamshidi needles after which a 6.5 x 40 mm screws were inserted bilaterally. the posterolateral gutter from L3-L5 was decorticated with a high-speed drill followed by placement of a 6.5 x 45 mm screw in the bilateral L3 and L5 pedicles. The right L5 pedicle screw did not have a satisfactory purchase. The L3-L5 pedicle screws were connected with a 70 mm dariusz bilaterally. Finally, the posterolateral fusion was completed by laying down allograft in the posterolateral gutter from L3-L5. Hemostasis was done. The paramedianincisions were closed in 2 layers . Steri-Strips were used to approximate the incisions. An Oppsite with tegaderm was used to cover the incision. All sponge and needle counts were correct. Patient was extubated and transported in stable to recovery room. The physician medical assistant cardiology helped with the interpretation intraoperative x-rays, place pedicle screws and closed the paramedian incisions. Anesthesia: General Estimated blood loss: 150 mL Specimen: None Surgical time: 90 minutes Deposition: Discharged home
--- NOTE | 2023-03-18 10:24 | PHA.MEDREC ---
Pharmacy Consult ? Medication Reconciliation Pharmacy has completed the medication reconciliation. Completed by RN and reviewed by pharmacy Jonny
[2023-03-18] MEDS: HYDROmorphone HCl 0.5 MG/0.5 ML SYRINGE 0.25 MG IVPUSH ×2 (10:35→10:40)
[2023-03-18] MEDS: oxyCODONE HCl Immed Release 5 MG TABLET PO ×2 (10:35→14:54)
[2023-03-18] MEDS: 0.9 % Sodium Chloride 1,000 ML 75 ML IVCONT (12:09)
[2023-03-18] MEDS: ceFAZolin Sodium/Dextrose,Iso 2 GM/50 ML PIGGYBACK IV ×2 (14:54→20:12)
[2023-03-18] MEDS: Acetaminophen 1,000 MG/100 ML PIGGYBACK 400 MG IV ×2 (16:34→21:39)
[2023-03-18] MEDS: Docusate Sodium 100 MG CAPSULE PO (20:13)
[2023-03-18] MEDS: Cyanocobalamin (Vitamin B-12) 1,000 MCG TABLET 1000 MCG PO (20:13)
[2023-03-18] MEDS: Loratadine 10 MG TABLET PO (20:13)
[2023-03-18] MEDS: oxyCODONE HCl Immed Release 5 MG TABLET 10 MG PO (20:22)
[2023-03-19] MEDS: ceFAZolin Sodium/Dextrose,Iso 2 GM/50 ML PIGGYBACK IV (01:55)
[2023-03-19] MEDS: 0.9 % Sodium Chloride 1,000 ML 75 ML IVCONT (01:56)
[2023-03-19] MEDS: oxyCODONE HCl Immed Release 5 MG TABLET 10 MG PO ×2 (01:57→08:31)
[2023-03-19] MEDS: Acetaminophen 1,000 MG/100 ML PIGGYBACK 400 MG IV ×2 (03:48→09:50)
[2023-03-19 04:00] VITALS: BP 103/61; PULSE 65; RESP 16; TEMP 36.2; O2SAT 95
[2023-03-19 06:00] VITALS: BP 113/57; PULSE 73; RESP 16; TEMP 36.6; O2SAT 94
[2023-03-19] MEDS: Levothyroxine Sodium 88 MCG TABLET PO (06:34)
[2023-03-19 07:59] VITALS: BP 108/59; PULSE 75; RESP 16; TEMP 37; O2SAT 92
--- NOTE | 2023-03-19 08:30 | HO.POSTANES ---
Post Anesthesia Evaluation Post Anesthesia Evaluation Date of Service: 03/19/23 Vital Signs: Vital Signs Temp Pulse Resp BP Pulse Ox O2 Del Method 03/19/23 07:59 98.6 F 75 16 108/59 L 92 Room Air 03/19/23 06:00 97.8 F 73 16 113/57 L 94 Room Air 03/19/23 04:00 97.2 F 65 16 103/61 95 Room Air 03/18/23 23:45 97.4 F 56 16 104/65 93 Room Air 03/18/23 22:00 98.0 F Anesthesia: General Mental Status: Awake Pain Control: Satisfactory (still complainong pf pain 5/10) Nausea/Vomiting: None Hydration: Adequate Anesthesia-Related Issues: No Anes. Related Issues
[2023-03-19] MEDS: Ascorbic Acid 500 MG TABLET PO (08:32)
[2023-03-19] MEDS: Cholecalciferol (Vitamin D3) 25 MCG TABLET PO (08:32)
[2023-03-19] MEDS: Docusate Sodium 100 MG CAPSULE PO (08:32)
[2023-03-19] MEDS: Multivitamin TABLET 1 TAB PO (08:32)
--- NOTE | 2023-03-19 08:46 | MHC.CM.PN ---
CM MET WITH PATIENT AT BEDSIDE. PATIENT IS FROM HOME WITH AND CHILDREN. INDEPENDENT, NO SERVICES. PCP: BRIDGETT HEAD MD HCP: COMPLETED WITH PATIENT, NAMED ILEANA AGENT DCP: NEUROSURG PA AT BEDSIDE. PATIENT MEDICALLY CLEARED FOR DC HOME TODAY. WILL PROVIDE TRANSPORTATION AT 11AM. RN AWARE.
[2023-03-19 09:15] VITALS: BP 108/59; PULSE 75; O2SAT 92
--- NOTE | 2023-03-19 09:19 | PM.DS ---
DS: Providers Provider Date of Service: 03/19/23 Date of admission: 03/18/23 07:23 Primary care physician: Vania Ramirez MD DS: Summary Time Attestation Discharge coordination time: Less than 30 minutes Quality: Safe Use of Opioids Does Pt have an Active Cancer Diagnosis on the Problem List?: No Quality: Stroke Does the patient have a stroke diagnosis?: No Physical Exam Vital Signs: Vital Signs: Last Vital Signs Temp 98.6 F 03/19/23 07:59 Pulse 75 03/19/23 09:15 Resp 16 03/19/23 07:59 BP 108/59 L 03/19/23 09:15 Pulse Ox 92 03/19/23 09:15 O2 Del Method Room Air 03/19/23 07:59 O2 Flow Rate 1 03/18/23 10:50 BMI result Body Mass Index 32.1 Discharge Plan Discharge Anticipated Discharge Date/Time: 03/19/23 09:22 Patient Disposition: Home, Self-Care Discharge Diagnosis: S/P L4 L3-5 posterior instrumentation Referrals: Vania Ramirez MD [Primary Care Provider] - 1 Week Discharge Medications: New oxycodone 5 mg tablet 5 mg PO Q6H PRN (Reason: severe pain) Qty: 30 0RF Rx Instructions: Partial Fill upon patient request. Continued cetirizine 10 mg tablet 10 mg PO BEDTIME levothyroxine 88 mcg tablet 88 mcg PO DAILY epinephrine 0.3 mg/0.3 mL auto-injector 0.3 mg IM DIRECTED fluticasone propionate 50 mcg/actuation spray,suspension 2 spray intranasal DAILY fluocinolone-niacinamide 0.025-4 % Cream 1 appl TOPICAL DAILY PRN (Reason: Skin Irritation) Probiotic 3 billion cell Capsule 3,000 mmu cells PO DAILY Rx Instructions: administer with a meal fiber Tablet 1 tab PO DAILY Multivitamin Women 50 Plus 8 mg iron-400 mcg-50 mcg Tablet 1 tab PO DAILY alendronate 70 mg tablet 70 mg PO QWEEK Rx Instructions: every Friday zinc acetate 50 mg (zinc) Capsule 50 mg PO BEDTIME cyanocobalamin (vitamin B-12) [Vitamin B-12] 1,000 mcg Tablet 1,000 mcg PO BEDTIME lysine 1,000 mg Tablet 1,000 mg PO DAILY ascorbic acid (vitamin C) [Vitamin C] 500 mg Tablet 500 mg PO DAILY cholecalciferol (vitamin D3) [Vitamin D3] 25 mcg (1,000 unit) Tablet 25 mcg PO DAILY Allergy sublingual Held oc-2-hee-epa-fish oil-vit D3 [Fish Oil-Vit D3] 300-1,000-1,000 mg-mg-unit Capsule 1 cap PO DAILY Hold Instructions: Resume on 05/19/23. Discharge Orders: Discharge Order (Routine); Ordered 03/19/23 Ordered By: Trav Harrison Diet: Advance to usual diet Activity on Discharge: As tolerated Stand Alone Forms: Patient Portal Discharge page Activity Restrictions/Additional Instructions: After your spinal surgery we ask you to observe the following restrictions/guidelines: Activity: With lumbar fusion surgery it is normal to have days in the first couple of weeks where you have increased leg pain. This usually lasts 1-2 days and self resolves with the continuation of medication. Attempt to stay mobile and continue activity as tolerated. It is normal to feel some discomfort as you increase your activity, but that will improve with time. We ask you avoid heavy lifting or activities that cause pain. As a general rule, 8lbs is a safe limit for lifting right after surgery. Walk as much as you feel comfortable but not to exhaustion. You will feel extra tired the first few days after surgery. Stay well hydrated. It is OK to walk up and down stairs You may return to driving when you are off narcotics (such as vicodin, oxycodone, dilaudid, etc), and you are back to normal functional capacity. If you have any concerns please check with office before driving. Return to work is specific to each patient and each surgery, so please speak with your doctor/PA at first follow up. Please bring paperwork such as FMLA at that time if you need it filled out. Medications: It is recommended that you take Tylenol 500 mg every 4 hours for the 1st week postoperatively, alongside ibuprofen 600 mg every 8 hours. We will give you a short supply of narcotics after surgery (usually one weeks worth). Please use this for breakthrough pain that is refractory to the Tylenol / ibuprofen If you need more please call the office but do not use more than prescribed. You will need to give our office 48 hours notice if you need narcotics refilled and we do not fill narcotics on weekends or evenings. If you are on a narcotic, it is a good idea to take a stool softener such as colace or senna to avoid constipation If you take blood thinner such as aspirin, Plavix, Coumadin, Effient, Eliquis etc for conditions such as Afib, DVT, Pulmonary embolus, coronary disease, stents etc please speak with your surgeon about specific details as to when you can resume these medications. You can resume NSAIDs on post op day 1 (eg: Motrin, Naproxen, etc). Follow up: Please call the office, , after surgery to arrange a 3 week follow up for wound check. Wound Care: You may remove your dressing on the first day after surgery. You may leave open to air. Please do not remove the steri strips underneath. they will fall off on their own in one week. IT IS NORMAL FOR THE WOUND TO OOZE OR BE BLOODY FOR A FEW DAYS AFTER SURGERY. IF THIS HAPPENS JUST PLACE NEW DRESSING OVER IT TO AVOID STAINING CLOTHES. You may shower on post op day # 1 We ask that you do not let the water soak the wound. If it does get wet, just towel dry lightly. Please do not scrub your incision or place any type of chemical/ointment on the wound. No tub baths, pools or jacuzzis for one month. If you have any leaking or redness from your wound, or fevers, please call office Care Plan Goals: Return to normal activity as tolerated. Health Concerns: None. Plan of Treatment: F/u in clinic in 2-3 weeks. Assessment: POD: 1 Procedure: L4 kyphoplasty, L3-5 posterior instrumentation fusion. Verena was seen sitting upright in her bed on . She reports she is up walking around is otherwise doing well. She has been up out of bed to the bathroom and has been walking around her room. She states she did not eat much yesterday but was able to eat a full breakfast this morning. She reports no significant pain down her legs or in her low back. She feels she has good relief of her postoperative discomfort with pain medications. Afebrile, vital signs stable. No neurological deficits. Back dressings have some staining without signs of hematoma. No active sanguineous drainage. Area is dry. Plan: Patient meets criteria to be medically discharged home. I will send in a short script of oxycodone to help with postoperative pain. This was discussed with the attending neurosurgeon Dr. Huertas who is in agreement with this plan. Trav Huertas MD,PhD [facility]
[2023-03-19] MEDS: oxyCODONE HCl Immed Release 5 MG TABLET PO (11:23)
== END 2023-03-19 12:23 | disposition home or self-care (01) | DRG 304 ==
LOC: HO.SSSA 07:32 → HO.S3 10:45
PROVIDERS: Neurological Surgery; Nurse Practitioner; Admitting Provider Physician Assistant; PCP Internal Medicine; Visit Provider Physician Assistant
PROC: 0SG10A0 Fusion of 2 or more Lumbar Vertebral Joints with Interbody Fusion Device, Anterior Approach, Anterior Column, Open Approach (ICD-10-PCS; principal; 2023-03-18 07:30)
DX: S32.041A Stable burst fracture of fourth lumbar vertebra, initial encounter for closed fracture (principal); Z79.51 Long term (current) use of inhaled steroids; X58.XXXA Exposure to other specified factors, initial encounter; Z79.890 Hormone replacement therapy; Z79.899 Other long term (current) drug therapy
CPT/HCPCS: 36415; 80048; 85027; 93005; 97116; 97161; C1713; J0131; J0330; J0690; J1100; J1170; J2405; J2704; L8699; Q9967

== ENCOUNTER → 2023-03-18 07:23 | Outpatient (BNV) | payer OTHER, SELFPAY | PROVIDERS: Admitting Provider Physician Assistant; PCP Internal Medicine; Visit Provider Neurological Surgery | DX: S32.000A Wedge compression fracture of unspecified lumbar vertebra, initial encounter for closed fracture (principal) | CPT/HCPCS: 22514; 22612; 22614; 22840; 99499 ==

== ENCOUNTER 2023-04-08 12:34 | Outpatient (AMB) | payer OTHER, SELFPAY ==
--- NOTE | 2023-04-08 12:59 | HO.SPINEOV ---
Intake Intake Visit Reasons: 1st post op Intake Note: Ms. Cates is here today for her 1st post-op visit. Construction Assistant Required: No Allergies bee pollen [bee stings] Allergy (Verified 03/05/23 06:41) Swelling NSAIDS (Non-Steroidal Anti-Inflamma Allergy (Verified 03/05/23 06:41) Unknown Assessment & Plan Assessment & Plan (1) S/P spinal fusion: Code(s): Z98.1 - Arthrodesis status Plan Procedure: L3-L5 posterior instrumented fusion; L4 kyphoplasty Verena comes in today for her 1st postoperative visit. She reports she is very satisfied with the surgery and feels much better than she did pre-operatively. She is up walking around and going for walks outside when the weather permits. She reports that she still has some lateral thigh pain which she attributes to recent increase in movement. She is still somewhat struggling to complete her ADLs around the home. Overall she appears well, and reports reduced pain. No neurological deficits. Patient is able to ambulate well, rises from a seated position without difficulty. Right-sided incision site is closed and well healing, left-sided incision site has a slight reduction approximation at the superior and inferior edges. This was loosely reapproximated with Steri-Strips. No signs of erythema, edema, fluctuance, or drainage. She ambulates well, and rises from a seated position without difficulty. We will follow-up with the patient in 6 weeks for her 2nd postoperative visit. At that time we will get x-rays to review with the patient. Trav Huertas MD,PhD [facility] Coding Level of Care Code Global (34911) Diagnoses S/P spinal fusion Z98.1
== END 2023-04-08 13:13 | disposition home or self-care (01) ==
PROVIDERS: PCP Internal Medicine; Visit Provider Physician Assistant
DX: Z98.1 Arthrodesis status (principal)
CPT/HCPCS: 99024

== ENCOUNTER → 2023-04-08 12:34 | Outpatient (BNVA) | payer OTHER, SELFPAY | PROVIDERS: PCP Internal Medicine; Visit Provider Physician Assistant ==

== ENCOUNTER 2023-05-16 10:50 | Outpatient (REF) | payer OTHER, SELFPAY ==
--- NOTE | ~2023-05-16 | XR_ITS ---
EXAMINATION: XR LUMBOSACRAL SPINE WITH OBLIQUES CLINICAL INFORMATION: Lumbar spine fusion COMPARISON: Lumbar spine x-ray on 10/04/2022 . TECHNIQUE: AP and lateral x-rays of lumbar spine FINDINGS: The visualized lumbar vertebrae show normal alignment. Marked L4 compression fracture, vertebroplasty with injection of Rupert methacrylate is seen. Posterior L3-L5 spinal fixation with transpedicular screws and vertical bars is seen. There is marked decrease in L5-S1 disc height. Surgical clips are again visualized in superior medial left upper abdomen. XR/XR lumbar spine 4V min IMPRESSION: 1. Interval performance of Posterior L3-L5 spinal fixation with transpedicular screws and vertical bars. 2. Persistent Marked L4 compression fracture, interval vertebroplasty with Rupert methacrylate. 3. Unchanged advanced L5-S1 degenerative lumbar disc disease and superior medial left upper abdominal surgical clips.
== END 2023-05-16 10:51 | disposition home or self-care (01) ==
LOC: HO.HOSX 10:50
PROVIDERS: Visit Provider Physician Assistant
DX: S32.000D Wedge compression fracture of unspecified lumbar vertebra, subsequent encounter for fracture with routine healing (principal); Z98.1 Arthrodesis status
CPT/HCPCS: 72110

== ENCOUNTER 2023-05-16 11:33 | Outpatient (AMB) | payer OTHER, SELFPAY ==
--- NOTE | 2023-05-16 11:56 | A.OFFVIS_ITS ---
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 Allergies bee pollen [bee stings] Allergy (Verified 03/05/23 06:41) Swelling NSAIDS (Non-Steroidal Anti-Inflamma Allergy (Verified 03/05/23 06:41) Unknown [facility] Medical History Back pain Arthritis Thyroid disease Kidney donor CKD (chronic kidney disease) stage 3, GFR 30-59 ml/min Chronic sinusitis Glaucoma Urinary incontinence Lumbar compression fracture Surgical History Hx of foot surgery H/O local excision of skin lesion Hx of section Hx of tonsillectomy History of nephrectomy, left H/O colonoscopy S/P anal fissurectomy Social History Household Members: Spouse and Children Housing: House Are you a primary physician assistant primary care to a significant other at home: No Do you presently have visiting nurse or other home services: No Comment: all counts correct Patient Tobacco Use Status: Never used Tobacco Second Hand Smoke Exposure: No service: No Assessment & Plan Assessment & Plan (1) S/P spinal fusion: Code(s): Z98.1 - Arthrodesis status (2) Lumbar compression fracture: Code(s): S32.000A - Wedge compression fracture of unspecified lumbar vertebra, initial encounter for closed fracture Plan Mrs Cates is here just about 2 months out from her L4 kyphoplasty with L3- 5 pedicle screw fixation. The significant pain she was having in her back with radiating leg pain as more less gone away. She still has stiffness and some feelings of discomfort at times when she is bending forward. Overall though she is doing very well. Her x-rays look excellent and her wounds are all healed. We discussed activity guidelines, restrictions and expectations after lumbar fusion surgery. At this point she can return to normal activities in about 1 month. I told her because of her osteoporosis she should avoid heavy lifting. We will be glad to see her back down the road if something changes. I gave her a note to return to work on 05/22/2023. Germán Huertas MD, PhD [facility] Orders: Orders XR lumbar spine 4V min Today S32.000A - Wedge compression fracture of unspecified lumbar vertebra, initial encounter for closed fracture, Z98.1 - Arthrodesis status Coding Level of Care Code Global (48673) Diagnoses S/P spinal fusion Z98.1 Lumbar compression fracture S32.000A
== END 2023-05-16 13:14 | disposition home or self-care (01) ==
PROVIDERS: PCP Internal Medicine; Visit Provider Physician Assistant
DX: Z98.1 Arthrodesis status (principal); S32.000A Wedge compression fracture of unspecified lumbar vertebra, initial encounter for closed fracture
CPT/HCPCS: 99024

== ENCOUNTER 2024-06-10 14:39 | Outpatient (REF) | payer OTHER, SELFPAY ==
--- NOTE | ~2024-06-10 | XR_ITS ---
EXAMINATION: X-ray lumbar spine, 4 views. CLINICAL INFORMATION: Wedge-shaped compression fracture, L4. COMPARISON: October 15, 2023. Collated to CT dated October 16, 2022. TECHNIQUE: 4 views of the lumbar spine. FINDINGS: Radiopaque material within the vertebral body of L4. There is a 40-50% volume loss, L4 vertebra and a 5 mm retropulsion. Transpedicle screws placed from L3 to L5 with posterior rods. There is a grade 1 retrolisthesis L5-S1 in neutral position and maintains during flexion and/or extension. The retropulsion of L4 persist during flexion and extension position. No other malalignment. Multilevel marginal osteophyte formation and endplate sclerosis in the lower thoracic spine. There is a superior endplate of T10 and likely old. Vascular clips in the left upper quadrant abdomen. XR/XR lumbar spine 4V min IMPRESSION: Status post kyphoplasty/vertebroplasty at L4 and posterior lumbar fusion L3-L5 without gross instability. Electronically signed by: Rasheed Coffman MD 06/11/2024 10:44 AM RINA SARAVIA
--- OUTSIDE RECORDS SUMMARY | 2024-06-10 16:24 | XMS_ITS | Clinical Summary ---
Author Organization [address] Address [address] [place], [place] [address] [address] Phone Care Team Providers Care Genetic Coordinator Name Role Phone Vania Ramirez MD Primary Care Provider [phone] Allergies Active Allergy Reactions Criticality Noted Date [...] History Surgery Date Site/Laterality Comments SECTION PROCEDURE: [facility]; COMMENT: X2 OTHER SURGICAL HISTORY PROCEDURE: ---- OTHER ----; COMMENT: anal fissurectomy BUNIONECTOMY PROCEDURE: [place] CORRJ HLX VLGS BNCTY SESMDC W/DOUBLE OSTEOTOMY; [...] Upcoming Encounters Date Type Department Care Team ([facility] Contact Info) Description 08/30/2024 3:30 PM EDT Office Visit Endocrinology - [place] [address] [place] [phone] Amirah Wilkins MD [address] [place] [address] 09/07/2024 9:30 AM EDT Office Visit Adult Medicine [facility] [address] [place] [phone] Vania Ramirez MD [address] [place] [address] Health Maintenance Due Date Last Done Comments [...] LAB CHEMISTRY METHOD 04/28/2024 6:53 PM EST [facility] Blood Venous blood specimen / Unknown Venipuncture / Unknown 04/28/2024 4:06 PM EST 04/28/2024 4:06 PM EST us Amirah Wilkins MD LAB BLOOD ORDERABLES Final Resul t [facility] [address] [place] [address], [place] [phone] * Thyroxine free (04/28/2024 4:06 PM EST) Free T4 1.17 0.70 - 1.80 ng/dL LAB CHEMISTRY METHOD 04/28/2024 6:52 PM EST [facility] Blood Venous blood specimen / Unknown Venipuncture / Unknown 04/28/2024 4:06 PM EST 04/28/2024 4:06 PM EST Amirah Wilkins MD LAB BLOOD ORDERABLES Final Resul t [facility] [place] [facility] [address] [place] [address], [place] [phone] * (ABNORMAL) Lipid panel (07/22/2023) Pathologist [facility] LDL/HDL Ratio 4 0 - 4 Triglycerides 112 0 - 150 mg/dL Cholesterol 208(A) 0 - 200 mg/dL HDL 57 >=40 mg/dL LDL Cholesterol 129(A) 0 - 100 mg/dL Blood Venous blood specimen / Unknown Historical Provider LAB BLOOD ORDERABLES Lily l Result * Pap Smear (02/24/2017) Pathologist [facility] Pap smear negative,a bstracted Historical Provider HEALTH MAINTENANCE Final Result * Colonoscopy (06/23/2014) Pathologist [facility] Colonoscopy no interpreta tion,abstr acted Anatomical Region Laterality Modality Other Historical Provider HEALTH MAINTENANCE Final Result from Last 3 Months or Most Recently Relevant to Health Maintenance Insurance [phone] [id number] (Work) [address] [place] [id number] [facility] Care Teams Genetic Coordinator Relationship Specialty Start Date End Date Vania Ramirez MD [facility] - General 04/12/22
== END 2024-06-10 14:40 | disposition home or self-care (01) ==
LOC: HO.HOSX 14:39
PROVIDERS: PCP Internal Medicine; Visit Provider Physician Assistant
DX: S32.000A Wedge compression fracture of unspecified lumbar vertebra, initial encounter for closed fracture (principal)
CPT/HCPCS: 72110

== ENCOUNTER 2024-06-10 14:39 | Outpatient (AMB) | payer OTHER, SELFPAY ==
--- NOTE | 2024-06-10 14:49 | A.SPINEOV_ITS ---
Intake Visit Reasons: back pain now on rt side Intake Note: Ms. Cates is here today c/o right sided back pain. 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 She underwent an L3-5 posterolateral fusion with L4 kyphoplasty in the setting of a burst fracture in 2022. She was doing great until about a week ago when she was getting into her 's truck and felt something pull in the right side of her low back and felt excruciating pain. It localizes itself well to somewhere over the right SI joint area. Her neurological exam is intact. She has been taking Motrin and resting. I did x- rays here in the office today and shows that the hardware appears to be in the same position we left it in the operating room, and according to her last x- rays. There is some signs that there may be some lucency around the screws at L5 bilaterally based on the x-rays but it is hard to make this diagnosis without a CT scan. At this point the construct is likely fused so I do not think it is meaningful, but if she is still having pain week for now I will get a CT just to double check that there is nothing new going on. Total amount of time spent in this visit was 20 minutes in discussion of symptoms, x-rays imaging results and subsequent plan of care Germán Huertas MD,PhD [facility] Orders: Orders XR lumbar spine 4V min Today S32.000A - Wedge compression fracture of unspecified lumbar vertebra, initial encounter for closed fracture Coding Level of Care Code Est Pt Level 3 (67610) Diagnoses Lumbar compression fracture S32.000A
--- OUTSIDE RECORDS SUMMARY | 2024-06-10 15:49 | XMS_ITS | Data Portability ---
Author Organization [place] - [facility], Allergy Address [address] [address] Care Team Providers Care Environmental Services Attendant Name Role Phone BRIDGETT HEAD Primary Care Provider Assessment Encounter Date Assessment Date Assessment LastModified by Organization Details LastModified Time 02/24/2024 02/24/2024 Patient with acute bronchitis with scattered wheezing. History of allergic rhinitis on allergy drops. Reports 3 bouts of sinusitis in the last year. Suggest continuing fluticasone and allergy drop therapy at the present time. Albuterol for acute bronchitis. She will contact me in 2 to 3 weeks to discuss her progress. Consider antibody titers and immune workup. [email or web address] Not available 02/24/2024 09:29:09 Plan of Treatment Reminders Order Date Submit Date Provider Last Modified By Organization Details Last Modified Time Details Appointments None recorded. Lab None recorded. Referral None recorded. Procedures None recorded. Surgeries None recorded. Imaging None recorded. Medication Orders fluticasone propionate 50 mcg/actuati on nasal spray,suspe nsion 2023 024 FABIOLA [facility]/Pharmacy #[id number], [facility] [place], [address], 09:28:00 albuterol sulfate HFA 90 mcg/actuati on aerosol inhaler 2023 024 Nevro [facility]/Pharmacy #[id number], [address] [place], [address], 09:27:59 Patient TargetsNo targets recorded. Patient InstructionsNo instructions recorded. Reason for Referral None Reported. Results Created Date Observation Date Name Description Value Unit Range Abnormal Flag Note LastModifiedBy Organization Detail LastModifiedTime 05/04/1905/05/2024 CBC WITH DIFFE RENTI AL/PL ATELE T WBC 6.9 x10e3 /uL 3.4-10 .8 normal Not Available [facility] ([facility]) [address] [place], [address], 05/12/2024 02:01:18 05/04/1905/05/2024 CBC WITH DIFFE RENTI AL/PL ATELE T RBC 4.63 x10e6 /uL 3.77-5 .28 normal Not Available [facility] ([facility]) [address] [place], [address], 05/12/2024 02:01:18 05/04/1905/05/2024 CBC WITH DIFFE RENTI AL/PL ATELE T hemoglobin 13.8 g/dL 11.1-1 5.9 normal Not Available [facility] ([facility]) [address] [place], [address], 05/12/2024 02:01:18 05/04/1905/05/2024 CBC WITH DIFFE RENTI AL/PL ATELE T hematocrit 41.5 % 34.0-4 6.6 normal Not Available [facility] ([facility]) [address] [place], [address], 05/12/2024 02:01:18 05/04/1905/05/2024 CBC WITH DIFFE RENTI AL/PL ATELE T MCV 90 fL 79-97 normal Not Available [facility] ([facility]) [address] [place], [address], 05/12/2024 02:01:18 05/04/1905/05/2024 CBC WITH DIFFE RENTI AL/PL ATELE T MCH 29.8 pg 26.6-3 3.0 normal Not Available [facility] ([facility]) [address] [place], [address], 05/12/2024 02:01:18 05/04/19 25 05/05/2024 CBC WITH DIFFE RENTI AL/PL ATELE T MCHC 33.3 g/dL 31.5-3 5.7 normal Not Available [facility] ([facility]) [address], [place], [place], [address], 05/12/2024 02:01:18 05/04/1905/05/2024 CBC WITH DIFFE RENTI AL/PL ATELE T RDW 14.2 % 11.7-1 5.4 Not Available [facility] ([facility]) [address], [place], [place], [address], 05/12/2024 02:01:18 05/04/19 25 05/05/2024 CBC WITH DIFFE RENTI AL/PL ATELE T platelets 433 x10e3 /uL 150-45 0 normal Not Available [facility] ([facility]) [address], [place], [place], [address], 05/12/2024 02:01:18 05/04/1905/05/2024 CBC WITH DIFFE RENTI AL/PL ATELE T neutrophils 62 % not estab. normal Not Available [facility] ([facility]) [address] [place], [address], 05/12/2024 02:01:18 05/04/1905/05/2024 CBC WITH DIFFE RENTI AL/PL ATELE T lymphs 24 % not estab. normal Not Available [facility] ([facility]) [address] [place], [address], 05/12/2024 02:01:18 05/04/19 25 05/05/2024 CBC WITH DIFFE RENTI AL/PL ATELE T monocytes 10 % not estab. normal Not Available [facility] ([facility]) [address] [place], [address], 05/12/2024 02:01:18 05/04/19 25 05/05/2024 CBC WITH DIFFE RENTI AL/PL ATELE T eos 3 % not estab. normal Not Available [facility] ([facility]) [address] [place], [address], 05/12/2024 02:01:18 05/04/1905/05/2024 CBC WITH DIFFE RENTI AL/PL ATELE T basos 1 % not estab. normal Not Available [facility] ([facility]) [address] [place], [address], 05/12/2024 02:01:18 05/04/1905/05/2024 CBC WITH DIFFE RENTI AL/PL ATELE T immature cells THERAPEUTIC MASSAGE TECHNICIAN Not Available [facility] ([facility]) [address] [place], [address], 05/12/2024 02:01:18 05/04/1905/05/2024 CBC WITH DIFFE RENTI AL/PL ATELE T neutrophils (absolute) 4.3 x10e3 /uL 1.4-7. 0 normal Not Available [facility] ([facility]) [address] [place], [address], 05/12/2024 02:01:18 05/04/1905/05/2024 CBC WITH DIFFE RENTI AL/PL ATELE T lymphs (absolute) 1.7 x10e3 /uL 0.7-3. 1 normal Not Available [facility] ([facility]) [address] [place], [address], 05/12/2024 02:01:18 05/04/1905/05/2024 CBC WITH DIFFE RENTI AL/PL ATELE T monocytes(ab solute) 0.7 x10e3 /uL 0.1-0. 9 normal Not Available [facility] ([facility]) [address] [place], [address], 05/12/2024 02:01:18 05/04/19 25 05/05/2024 CBC WITH DIFFE RENTI AL/PL ATELE T eos (absolute) 0.2 x10e3 /uL 0.0-0. 4 normal Not Available [facility] ([facility]) [address], [place], [place], [address], 05/12/2024 02:01:18 05/04/1905/05/2024 CBC WITH DIFFE RENTI AL/PL ATELE T baso (absolute) 0.1 x10e3 /uL 0.0-0. 2 normal Not Available [facility] ([facility]) [address], [place], [place], [address], 05/12/2024 02:01:18 05/04/1905/05/2024 CBC WITH DIFFE RENTI AL/PL ATELE T immature granulocytes 0 % not estab. Not Available [facility] ([facility]) [address], [place], [place], [address], 05/12/2024 02:01:18 05/04/1905/05/2024 CBC WITH DIFFE RENTI AL/PL ATELE T immature grans (abs) 0.0 x10e3 /uL 0.0-0. 1 Not Available [facility] ([facility]) [address], [place], [place], [address], 05/12/2024 02:01:18 05/04/1905/05/2024 CBC WITH DIFFE RENTI AL/PL ATELE T NRBC THERAPEUTIC MASSAGE TECHNICIAN Not Available [facility] ([facility]) [address], [place], [place], [address], 05/12/2024 02:01:18 05/04/19 25 05/05/2024 CBC WITH DIFFE RENTI AL/PL ATELE T hematology comments: THERAPEUTIC MASSAGE TECHNICIAN Not Available [facility] ([facility]) [address], [place], [place], [address], 05/12/2024 02:01:18 05/04/19 25 05/12/2024 PNEUM OCOCC AL AB (23 SEROT YPE) pneumo Ab type 1* 0.9 ug/mL >1.3 below low normal Not Available [facility] [address] [place], [address], 05/12/2024 02:01:22 05/04/1905/12/2024 PNEUM OCOCC AL AB (23 SEROT YPE) pneumo Ab type 3* <0.1 ug/mL >1.3 below low normal Not Available [facility] [address] [place], [address], 05/12/2024 02:01:22 05/04/1905/12/2024 PNEUM OCOCC AL AB (23 SEROT YPE) pneumo Ab type 4* 0.1 ug/mL >1.3 below low normal Not Available [facility] [address] [place], [address], 05/12/2024 02:01:22 05/04/1905/12/2024 PNEUM OCOCC AL AB (23 SEROT YPE) pneumo Ab type 8* 3.4 ug/mL >1.3 Not Available [facility] [address] [place], [address], 05/12/2024 02:01:22 05/04/1905/12/2024 PNEUM OCOCC AL AB (23 SEROT YPE) pneumo Ab type 9 (9N)* <0.1 ug/mL >1.3 below low normal Not Available [facility] [address] [place], [address], 05/12/2024 02:01:22 05/04/1905/12/2024 PNEUM OCOCC AL AB (23 SEROT YPE) pneumo Ab type 12 (12F)* 0.3 ug/mL >1.3 below low normal Not Available [facility] [address] [place], [address], 05/12/2024 02:01:22 05/04/1905/12/2024 PNEUM OCOCC AL AB (23 SEROT YPE) pneumo Ab type 14* <0.1 ug/mL >1.3 below low normal Not Available [facility] [place] [address] [place], [address], 05/12/2024 02:01:22 05/04/19 25 05/12/2024 PNEUM OCOCC AL AB (23 SEROT YPE) pneumo Ab type 17 (17F)* 1.1 ug/mL >1.3 below low normal Not Available [facility] [place], [address], 05/12/2024 02:01:22 05/04/1905/12/2024 PNEUM OCOCC AL AB (23 SEROT YPE) pneumo Ab type 19 (19F)* 2.0 ug/mL >1.3 Not Available [facility] [place], [address], 05/12/2024 02:01:22 05/04/19 25 05/12/2024 PNEUM OCOCC AL AB (23 SEROT YPE) pneumo Ab type 2* 0.6 ug/mL >1.3 below low normal Not Available [facility] [place], [address], 05/12/2024 02:01:22 05/04/19 25 05/12/2024 PNEUM OCOCC AL AB (23 SEROT YPE) pneumo Ab type 20* 0.7 ug/mL >1.3 below low normal Not Available [facility] [place], [address], 05/12/2024 02:01:22 05/04/19 25 05/12/2024 PNEUM OCOCC AL AB (23 SEROT YPE) pneumo Ab type 22 (22F)* 0.6 ug/mL >1.3 below low normal Not Available [facility] [address] [place], [address], 05/12/2024 02:01:22 05/04/19 25 05/12/2024 PNEUM OCOCC AL AB (23 SEROT YPE) pneumo Ab type 23 (23F)* 0.7 ug/mL >1.3 below low normal Not Available [facility] [address] [place], [address], 05/12/2024 02:01:22 05/04/1905/12/2024 PNEUM OCOCC AL AB (23 SEROT YPE) pneumo Ab type 26 (6B)* 0.1 ug/mL >1.3 below low normal Not Available [facility] [address] [place], [address], 05/12/2024 02:01:22 05/04/19 25 05/12/2024 PNEUM OCOCC AL AB (23 SEROT YPE) pneumo Ab type 34 (10A)* 0.8 ug/mL >1.3 below low normal Not Available [facility] [address] [place], [address], 05/12/2024 02:01:22 05/04/19 25 05/12/2024 PNEUM OCOCC AL AB (23 SEROT YPE) pneumo Ab type 43 (11A)* 0.3 ug/mL >1.3 below low normal Not Available [facility] [address] [place], [address], 05/12/2024 02:01:22 05/04/1905/12/2024 PNEUM OCOCC AL AB (23 SEROT YPE) pneumo Ab type 5* 0.6 ug/mL >1.3 below low normal Not Available [facility] [address] [place], [address], 05/12/2024 02:01:22 05/04/19 25 05/12/2024 PNEUM OCOCC AL AB (23 SEROT YPE) pneumo Ab type 51 (7F)* 0.2 ug/mL >1.3 below low normal Not Available [facility] [address] [place], [address], 05/12/2024 02:01:22 05/04/1905/12/2024 PNEUM OCOCC AL AB (23 SEROT YPE) pneumo Ab type 54 (15B)* 1.6 ug/mL >1.3 Not Available [facility] [address] [place], [address], 05/12/2024 02:01:22 05/04/1905/12/2024 PNEUM OCOCC AL AB (23 SEROT YPE) pneumo Ab type 56 (18C)* 0.1 ug/mL >1.3 below low normal Not Available [facility] [place], [address], 05/12/2024 02:01:22 05/04/19 25 05/12/2024 PNEUM OCOCC AL AB (23 SEROT YPE) pneumo Ab type 57 (19A)* 1.3 ug/mL >1.3 below low normal Not Available [facility] [place], [address], 05/12/2024 02:01:22 05/04/19 25 05/12/2024 PNEUM OCOCC AL AB (23 SEROT YPE) pneumo Ab type 68 (9V)* <0.1 ug/mL >1.3 below low normal Not Available [facility] [address] [place], [address], 05/12/2024 02:01:22 05/04/19 25 05/12/2024 PNEUM OCOCC AL AB (23 SEROT YPE) pneumo Ab type 70 (33F)* 1.6 ug/mL >1.3 *This test was devel oped and its perfo rmanc e rubio cteri stics deter mined by [employer]. It has not been clear ed or appro brian by the U.S. Food and Drug Admin istra tion. FLAG Inter preta tion: A = Abnor mal, H = High, L = Low Not Available [facility] [address] , [place], [address], 05/12/2024 02:01:05/04/19 25 05/05/2024 IMMUN OGLOB ULINS A/G/M , QN, SER immunoglobul in g, qn, serum 1028 mg/dL 586-16 02 Not Available [facility] ([facility]) [address] [place], [address], 05/12/2024 02:01:05/04/19 25 05/05/2024 IMMUN OGLOB ULINS A/G/M , QN, SER immunoglobul in A, qn, serum 420 mg/dL 87-352 above high normal Not Available [facility] ([facility]) [address] [place], [address], 05/12/2024 02:01:05/04/19 25 05/05/2024 IMMUN OGLOB ULINS A/G/M , QN, SER immunoglobul in M, qn, serum 40 mg/dL 26-217 Not Available [facility] ([facility]) [address] [place], [address], 05/12/2024 02:01:05/04/1905/10/2024 HAEMO PHILU S INFLU ENZAE B IGG haemophilus influenzae B IgG 0.78 ug/mL NOTE: An anti- Hib level of 0.15 ug/mL is gener ally accep hanny as the minim um level for prote ction . Optim al prote ction post- vacci natio n requi res a level great er than 1.00 ug/mL . Not Available [facility] ([facility]) [address], [place], [place], [address], 05/12/2024 02:01:23 05/04/19 25 05/07/2024 TETAN US ANTIT OXOID IGG AB tetanus antitoxoid IgG Ab 2.11 IU/mL <0.10 Inter preta tion: Non-P rotec tive <0.10 Prote ctive >=0.1 0 Resul ts for this test are for resea rch purpo ses only by the assay 's manuf actur er. The perfo rmanc e rubio cteri stics of this produ ct have not been estab lishe d. Resul ts shoul d not be used as a diagn ostic proce dure witho ut confi rmati on of the diagn osis by [facility] medic ally estab lishe d diagn ostic produ ct or proce dure. Not Available [facility] ([facility]) [address] [place], [address], 05/12/2024 02:01:24 05/04/19 25 05/07/2024 IMMUN OGLOB ULIN E, TOTAL immunoglobul in E, total 19 IU/mL 6-495 Not Available [facility] ([facility]) [address] [place], [address], 05/12/2024 02:01:25 Result Notes None recorded. Problems Name Problem SNOMED Code Status Onset Date Resolution Date Notes Provider Name and Address Organization Details Recorded Time Allergic rhinitis 71889696 Active 2019 Allergic Rhinitis; Note: Date Diagnosed : 05/13/2019 2:24 PM (477.9) Allergi c rhinitis: Due to other allergen; Note: Date Diagnosed : 9 1:46 PM (477.8) ; Start Date : 9 Other allergic rhinitis; Note: Date Diagnosed : 9 2:38 PM (J30.89) ; Start Date : 9 Not Available [facility] 4 03:17:35 Nasal congestio n 63016383 Active 2018 Nasal congestio n; Note: Date Diagnosed : 9 2:38 PM (R09.81) Not Available [facility] 4 03:17:35 Dysphonia 62954098 Active 2018 Hoarsenes s; Note: Date Diagnosed : 9 2:39 PM (R49.0) Not Available [facility] 4 03:17:36 Bilateral disorder of Eustachia n tubes 37310291290 63162 Active 2023 Other specified disorders of Eustachia n tube, bilateral ; Note: Date Diagnosed : 07/11/2023 3:24 PM (H69.83) Not Available [facility] 4 03:17:35 Sensorine ural hearing loss of bilateral ears 193280931 Active 2023 Sensorine ural hearing loss, bilateral ; Note: Date Diagnosed : 07/11/2023 3:34 PM (H90.3) Not Available [facility] 4 03:17:35 Abnormal auditory perceptio n 45310204 Active 2023 Other abnormal auditory perceptio ns, bilateral ; Note: Date Diagnosed : 07/11/2023 3:24 PM (H93.293) Not Available [facility] 4 03:17:36 Acute bronchiti s 06807469 Active 2023 GRAHAM SILVESTRE MD [address] [place] [address], [place], [address] , [facility] - [facility] 4 09:27:15 Immunodef iciency disorder 617605700 Active 2024 GRAHAM SILVESTRE MD [address] [place] [address], [place], [address] , [facility] - [facility] 5 16:01:02 Problem Notes None recorded. Medical Equipment None Reported. Medications Name Sig Start Date Stop Date Status Note LastModified by Organization Details LastModified Time cetirizin e 10 mg tablet TAKE 1 TABLET BY MOUTH EVERY DAY active Not Available Not Available No t Available fluconazo le 150 mg tablet 10/12 completed Medicati on ID: [id number] D uration Value: 6 Reason: () Brand Name: fluconaz ole Send Method: E-Prescr ibed Sub s Allowed: subs OK Speci al Instruct ion: TK 1 T PO 1 TIME 1 TIME. REPEAT IN 72 H Medica tionGene ricName: fluconaz ole Not Available Not Available Not Available valacyclo vir 1 gram tablet TAKE 2 TABLETS BY MOUTH EVERY 12 HOURS FOR 1 DAY AT ONSET OF SYMPTOMS 02/23 completed Not Available Not Available Not Available prednison e 20 mg tablet TAKE 3 TABLETS BY MOUTH DAILY FOR 3 DAYS, 2 TABLETS DAILY FOR 3 DAYS, 1 TABLET DAILY FOR 3 DAYS active Not Available Not Available No t Available alendrona te 70 mg tablet TAKE 1 TABLET BY MOUTH EVERY 7 DAYS FOR 360 DAYS. active Not Available Not Available No t Available metronida zole 500 mg tablet 10/12 completed Medicati on ID: [id number] D uration Value: 7 Reason: () Brand Name: metronid azole Se nd Method: E-Prescr ibed Sub s Allowed: subs OK Speci al Instruct ion: TK 1 T PO Q 12 H FOR 7 DAYS Med ication enericNa me: metronid azole Not Available Not Available Not Available levothyro xine 100 mcg tablet TAKE 1 TABLET BY MOUTH EVERY DAY active Not Available Not Available No t Available levothyro xine 88 mcg tablet TAKE 1 TABLET BY MOUTH EVERY DAY 02/23 completed Not Available Not Available Not Available benzonata te 100 mg capsule TAKE 1 CAPSULE BY MOUTH 3 TIMES A DAY IF NEEDED FOR COUGH. DO NOT CRUSH OR CHEW. active Not Available Not Available No t Available nystatin 100,000 unit/gram topical cream 10/12 completed Medicati on ID: [id number] D uration Value: 30 Brand Name: nystatin Send Method: E-Prescr ibed Sub s Allowed: subs OK Speci al Instruct ion: APPLY TOPICALL Y TO GLUTEAL CLEFT QPM UTD Medi cationGe nericNam e: nystatin Not Available Not Available Not Available levothyro xine 150 mcg tablet 02/23 completed Medicati on ID: [id number] D uration Value: 90 Brand Name: levothyr oxine Se nd Method: E-Prescr ibed Sub s Allowed: subs OK Speci al Instruct ion: TK 1 T PO D Medica tionGene ricName: levothyr oxine Not Available Not Available Not Available mupirocin 2 % topical ointment 10/12 completed Medicati on ID: [id number] D uration Value: 10 Brand Name: laura lee Send Method: E-Prescr ibed Sub s Allowed: subs OK Speci al Instruct ion: MIX WITH EQUAL AMOUNTS OF FLUOCINO LONE OINTMENT . APPLY TO GLUTEAL CHRIS FT IN THE MORNING Medicati onGeneri cName: isiroci n Not Available Not Available Not Available fluocinol one 0.025 % topical ointment 10/12 completed Medicati on ID: [id number] D uration Value: 7 Brand Name: fluocino lonmonie Sen d Method: E-Prescr ibed Sub s Allowed: subs OK Medic ationGen ericName : fluocino lone Not Available Not Available Not Available epinephri ne 0.3 mg/0.3 mL injection , auto-inje ctor INJECT 1 PEN A SINGLE DOSE NEEDED active Not Available Not Available No t Available albuterol sulfate HFA 90 mcg/actua tion aerosol inhaler INHALE 2 PUFFS BY MOUTH EVERY 6 HOURS active Not Available Not Available No t Available fluticaso ne propionat e 50 mcg/actua tion nasal spray,sunita pension INSTILL 2 SPRAYS BY INTRANAS AL ROUTE EVERY DAY active Not Available Not Available No t Available amoxicill in 875 mg-potass ium clavulana te 125 mg tablet TAKE 1 TABLET BY MOUTH TWICE DAILY FOR 10 DAYS 02/23 completed Not Available Not Available Not Available oxycodone 5 mg tablet TAKE 1 TABLET BY MOUTH EVERY 6 HOURS NEEDED FOR SEVERE PAIN 02/23 completed Not Available Not Available Not Available Fiber Therapy (methylce llulose) 500 mg tablet 10/12 completed Medicati on ID: [id number] D uration Value: 30 Brand Name: Fiber Therapy (m-cellu lose) Se nd Method: E-Prescr ibed Sub s Allowed: subs OK Speci al Instruct ion: TK 1 T PO QD Medic ationGen ericName : Fiber Therapy (m-cellu lose) Not Available Not Available Not Available Vitals Date Recorded Body height Body mass index (BMI) Body weight Provider Name and Address Organization Details Last Updated DateTime 02/24/2024 167.64 cm 30.7 kg/m2 75175.55 g Justen Adolfo [place] - [facility] 02/24/2024 09:14:48 Social History None recorded. Functional Status None recorded. Mental Status None recorded. Family History Nothing Reported. Medical History No medical history recorded. Gynecological HistoryNo gynecological history recorded. Obstetrics History GPAL:G 0 P 0 0 0 0 Past Encounters Encounter ID Performer Location Encounter Start Date Encounter Closed Date Diagnosis/Indication Diagnosis SNOMED-CT Code Diagnosis ICD10 Code Diagnosis Note [id number] GRAHAM SILVESTRE MD [facility] [address] [address] 02/24/2024 08:53:32 02/24/2024 09:30:48 Allergic rhinitis 45081586 J30.9 Acute bronchitis 7622513 2 J20.9 Health Concerns Section Related Observation LastModified by Organization Detai ls LastModified Time None Recorded Concern Status LastModified by Organization Details LastModified Time None Recorded Advance Directives Directive None Recorded Payers Encounter Date Sequence Insurance Name Policy Number Policy Fernández Covered Member ID Fernández Member ID Guarantor Name 02/24/[address] [place] [address] ([facility] [id number] Verena Cates [id number] Verena Cates Notes Date Note Type Note Provider Name and Address Organization Details Recorded Time 02/24/2024 text/html cough and wheezing for 1 week. COVID negative. Allergies have been OKSinus infection in October --3 in last year GRAHAM FIELDS MD [address] [place] [address], [id number], [place] - [facility] 02/24/2024 09:29:44 OBGyn Episode No OBEpisode recorded.
--- OUTSIDE RECORDS SUMMARY | 2024-06-10 15:49 | XMS_ITS | Clinical Summary ---
Author Organization [address] Address [address] [place], [place] [address], [place] [address] Phone Care Team Providers Care Mammalogy Teacher Name Role Phone Vania Ramirez MD Primary Care Provider [phone] Allergies Active Allergy Reactions Criticality Noted Date Comments Bee Venom Protein (Honey Bee) 06/29/2015 swelling Nsaids (Non-Steroidal Anti-Inflammatory Drug) 04/08/2012 Has only 1 kidney; avoid NSAID Medications UNABLE TO FIND Fluocinolone Acet-Niacinamide 0.025-4 % Cream Patient sig: Apply topically. Active Bacillus coagulans/inuli n (PROBIOTIC FORMULA, INULIN, ORAL) Take 1 Cap by mouth daily. OTC Active alendronate (FOSAMAX) 70 mg tablet TAKE 1 TABLET BY MOUTH EVERY 7 DAYS FOR 360 DAYS. 4 09/05/19 25 Active cetirizine (ZyrTEC) 10 mg tablet TAKE 1 TABLET BY MOUTH EVERY DAY 4 Active EPINEPHrine (EpiPen 2-Rajan) 0.3 mg/0.3 mL injection Inject 0.3 mg into the muscle as needed for Other (anaphylactic reaction). 2-pack. Fill with whichever brand is covered by insurance. 3 Active fluticasone propionate (FLONASE) 50 mcg/actuation nasal spray Shake liquid and use 2 sprays in each nostril daily 4 Active albuterol HFA (PROAIR HFA ; PROVENTIL HFA ; VENTOLIN HFA) 90 mcg/actuation inhaler Inhale 2 puffs by mouth every 6 (six) hours if needed for wheezing or shortness of breath. Prescribe By ENT Active predniSONE (DELTASONE) 20 mg tablet Take 60 mg PO daily for 3 days, then take 40 mg PO daily for 3 days, then 20 mg PO daily for 3 days, then stop 18 tablet 4 Active levothyroxine (SYNTHROID, LEVOTHROID) 100 mcg tabletIndicatio ns:Hypothyroidi sm, unspecified type TAKE 1 TABLET BY MOUTH EVERY DAY 90 tablet 1 4 Active Active Problems Problem Noted Date Diagnosed Date Osteopenia 07/22/2023 Lumbar radiculopathy 08/12/2022 Overview (01/22/2024): Last Assessment & Plan: I reviewed this in detail with Ms. Cates with the most obvious finding being the now healed L4 compression fracture. There is no treatment for this now but she has this persistent pinching of her left flank with pain across the top of the buttocks and she feels quite certain that this is nerve pain. There is no central stenosis at any level while there is mild to moderate foraminal stenosis bilaterally at L3-4. The bulging disc appears to contact the nerves without compression and there is no role for surgery. She did not see an improvement with oral steroids but it is possible that she may respond better to a well-placed steroid injection. We discussed how much of her symptoms are in this left flank area versus at the SI joints and it is the left pinching that bothers her every day. She is willing to try a left L3 TFE so we will make that referral. Lumbar compression fracture 02/07/2022 Overview (01/22/2024): 02/09 L4 compression fracture Urinary incontinence 08/15/2016 Overview (01/22/2024): Bladder sling procedure 08/05 Glaucoma 12/27/2013 Overview (01/22/2024): Narrow angle, scheduled for surgery 01/02-02/01 Chronic sinusitis 12/11/2013 CKD (chronic kidney disease) stage 3, GFR 30-59 ml/min 03/31/2013 Overview (01/22/2024): Kidney donor; GFR 42 Hypothyroidism 05/08/2009 Resolved Problems Problem Noted Date Diagnosed Date Resolved Date Kidney donor 03/09/2012 01/22/2024 Overview (01/22/2024): Donated left kidney Immunizations Name Administration Dates Next Due H1N1 Inj Preservative Free 05/08/2009 Influenza Quadravalent, MDCK , 0.5ml, preservative free (Flucelvax) 6mo and older 01/19/2023,01/12/2021 Influenza trivalent, with preservative (Fluzone; Afluria) 6mo and older 02/02/2022,01/10/2020,2016,2014,02/14/2014,03/31/2013 Influenza, Unspecified 12/21/2023,01/19/2023 Moderna (age 6mo & older) Bi valent, COVID-19, 0.5 mL or 0.25 mL dosage 02/16/2022 Td Tetanus diptheria (Tdvax) 7yo and older 04/21/2002 Tdap Tetanus diptheria acell ular pertussis (Boostrix; Adacel) 7yo and older 07/17/2022,10/02/2011 Zoster recombinant (Shingrix ) 19yo and older 12/17/2020,10/15/2020 Surgical History Surgery Date Site/Laterality Comments SECTION PROCEDURE: [facility] DELIVERY ONLY; COMMENT: X2 OTHER SURGICAL HISTORY PROCEDURE: ---- OTHER ----; COMMENT: anal fissurectomy BUNIONECTOMY PROCEDURE: [place] CORRJ HLX VLGS BNCTY SESMDC W/DOUBLE OSTEOTOMY; COMMENT: left foot TONSILLECTOMY PROCEDURE: HISTORICAL TONSILLECTOMY NEPHRECTOMY 02/2012 PROCEDURE: HISTORICAL NEPHRECTOMY; COMMENT: donated left kidney OTHER SURGICAL HISTORY 04/20/2020 PROCEDURE: OUTSIDE MAMMO COLONOSCOPY 2014 PROCEDURE: HISTORICAL COLONOSCOPY; COMMENT: normal BLADDER SUSPENSION 07/2016 PROCEDURE: HISTORICAL BLADDER SUSPENSION; COMMENT: sling procedure OTHER SURGICAL HISTORY PROCEDURE: SKIN EXCISION; COMMENT: gluteal BACK SURGERY 03/18/2023 PROCEDURE: HISTORICAL BACK SURGERY; COMMENT: repair lumbar compression lakisha Huertas Medical History Medical History Date Comments Seasonal allergies DX:Seasonal a llergies 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) DX:Vulvar intraepithelial ne oplasia III (SARA III) Hypothyroidism DX:Hypothyroidis m Kidney donor 03/09/2012 DX:Kidney donor CKD (chronic kidney disease) 03/31/2013 DX: CKD (chronic kidney disease); COMMENT: Kidney donor; GFR 42 Glaucoma 12/27/2013 DX:Glaucoma; COM MENT: Narrow angle Urinary incontinence 08/15/2016 DX:Urinary incontinence; COMMENT: Bladder sling procedure 08/05 Family History Medical History Relation Name Comments Heart attack Brother Other: kidney failure Brother receiv ed kidney transplant Heart attack Father Hypertension Father cataract Breast cancer Maternal Grandmother in her 70s COPD Mother Osteoporosis Mother Stomach cancer Other cousin Lung cancer Uncle Relation Name Status Comments Brother Father Maternal Grandmother Mother Alive Other Uncle Social History Tobacco Use Types Packs/Day Years Used Date Smoking Tobacco: Never Smokeless Tobacco: Never Tobacco Cessation:Counseling Given: Not Answered Alcohol Use Standard Drinks/Week Comments Yes 0 (1 standard drink = 0.6 oz pur e alcohol) Comments Unknown Sex and Gender Information Value Date Recorded Sex Assigned at Not on file Legal Sex Female 6:56 PM EST Gender Identity Not on file Sexual Orientation Not on file Obstetrics History Last Filed Vital Signs Vital Sign Reading Time Taken Comments Blood Pressure 133/84 03/02/2024 3:55 PM EST Pulse 71 03/02/2024 3:55 PM EST Temperature 36.1 ??C (96.9 ??F) 03/02/2024 3:55 PM ES T Respiratory Rate 16 02/25/2024 4:48 PM EST Oxygen Saturation 97% 03/02/2024 3:55 PM EST Inhaled Oxygen Concentration - - Weight 88 kg (194 lb) 03/02/2024 3:55 PM EST Height 167.6 cm (5' 6 ) 03/02/2024 3:55 PM EST Body Mass Index 31.31 03/02/2024 3:55 PM EST Plan of Treatment Upcoming Encounters Date Type Department Care Team ([facility] Contact Info) Description 08/30/2024 3:30 PM EDT Office Visit Endocrinology - [place] [address] [place] [phone] Amirah Wilkins MD [address] [place] [address] 09/07/2024 9:30 AM EDT Office Visit Adult Medicine [facility] [address] [place] [phone] Vania Ramirez MD [address] [place] [phone] Health Maintenance Due Date Last Done Comments Breast Cancer Screening 1965 Hepatitis B Vaccines (1 of 3 - 19+ 3-dose series) 1986 Cervical Cancer Screening: Pap Smear 02/25/2020 02/24/2017 Depression Screening 03/30/2022 HIV Screening 03/30/2022 Hepatitis C Screening 03/30/2022 Social Influencers of Health Screening 03/30/2022 Colorectal Cancer Screening: Colonoscopy 06/23/2024 06/23/2014 Cholesterol Screening (Lipid Panel) 07/21/2028 07/22/2023 DTaP,Tdap,and Td Vaccines (5 - Td or Tdap) 07/17/2032 07/17/2022, 10/02/2011, 04/21/2002, Additional history exists Zoster Vaccines Completed 12/17/2020, 10/15/2020 Influenza Vaccine Completed 12/21/2023, , 01/19/2023, Additional history exists COVID-19 Vaccine Completed 12/27/2023, 04/2022, 02/16/2022, Additional history exists Pneumococcal Vaccine: 50+ Years Completed 05/14/2024 Pneumococcal Vaccine: Pediatrics (0 to 5 Years) and At-Risk Patients (6 to 64 Years) Aged Out 05/14/2024 No longer eligible based on patient's age to complete this topic HIB Vaccines Aged Out No longer eligi ble based on patient's age to complete this topic HPV Vaccines Aged Out No longer eligi ble based on patient's age to complete this topic Hepatitis A Vaccines Aged Out No long er eligible based on patient's age to complete this topic IPV Vaccines Aged Out No longer eligi ble based on patient's age to complete this topic MMR Vaccines Aged Out No longer eligi ble based on patient's age to complete this topic Meningococcal ACWY Vaccine Aged Out N o longer eligible based on patient's age to complete this topic Meningococcal B Vacine Aged Out No lo nger eligible based on patient's age to complete this topic RSV Immunization Patients Under 20 months Aged Out No longer eligible based on patient's age to complete this topic Varicella Vaccines Aged Out No longer eligible based on patient's age to complete this topic Procedures Procedure Name Priority Date/Time Associated Diagnosis Comments THYROID STIMULATING HORMONE Routine 04/28/2024 4:06 PM EST Hypothyroidism, unspecified type THYROXINE FREE Routine 04/28/2024 4:06 PM EST Hypothyroidism, unspecified type LIPID PANEL Routine 07/22/2023 HM PAP SMEAR Routine 02/24/2017 COLONOSCOPY Routine 06/23/2014 from Last 3 Months or Most Recently Relevant to Health Maintenance Results * Thyroid stimulating hormone (04/28/2024 4:06 PM EST) TSH 0.65 0.40 - 4.00 mcIU/mL LAB CHEMISTRY METHOD 04/28/2024 6:53 PM EST [facility] Blood Venous blood specimen / Unknown Venipuncture / Unknown 04/28/2024 4:06 PM EST 04/28/2024 4:06 PM EST us Amirah Wilkins MD LAB BLOOD ORDERABLES Final Resul t [facility] [address] [place] [address], [place] [phone] * Thyroxine free (04/28/2024 4:06 PM EST) Free T4 1.17 0.70 - 1.80 ng/dL LAB CHEMISTRY METHOD 04/28/2024 6:52 PM EST [facility] Blood Venous blood specimen / Unknown Venipuncture / Unknown 04/28/2024 4:06 PM EST 04/28/2024 4:06 PM EST Amirah Wilkins MD LAB BLOOD ORDERABLES Final Resul t [facility] [place] [facility] [address] [place] [address], [place] [phone] * (ABNORMAL) Lipid panel (07/22/2023) Pathologist [facility] LDL/HDL Ratio 4 0 - 4 Triglycerides 112 0 - 150 mg/dL Cholesterol 208(A) 0 - 200 mg/dL HDL 57 >=40 mg/dL LDL Cholesterol 129(A) 0 - 100 mg/dL Blood Venous blood specimen / Unknown Historical Provider LAB BLOOD ORDERABLES Lily l Result * Pap Smear (02/24/2017) Pathologist [facility] Pap smear negative,a bstracted Historical Provider HEALTH MAINTENANCE Final Result * Colonoscopy (06/23/2014) Pathologist [facility] Colonoscopy no interpreta tion,abstr acted Anatomical Region Laterality Modality Other Historical Provider HEALTH MAINTENANCE Final Result from Last 3 Months or Most Recently Relevant to Health Maintenance Insurance [phone] [id number] (Work) [address] [place] [id number] [facility] Care Teams Mammalogy Teacher Relationship Specialty Start Date End Date Vania Ramirez MD [facility] - General 04/12/22
== END 2024-06-10 16:01 | disposition home or self-care (01) ==
PROVIDERS: PCP Internal Medicine; Visit Provider Physician Assistant
DX: S32.000A Wedge compression fracture of unspecified lumbar vertebra, initial encounter for closed fracture (principal)
CPT/HCPCS: 99213

== ENCOUNTER → 2024-06-10 15:26 | Outpatient (BNV) | payer OTHER, SELFPAY | PROVIDERS: PCP Internal Medicine; Visit Provider Radiology Diagnostic Radiology | DX: S32.040A Wedge compression fracture of fourth lumbar vertebra, initial encounter for closed fracture (principal) | CPT/HCPCS: 72110 ==

== ENCOUNTER 2024-08-27 07:19 | Outpatient (REF) | payer OTHER, SELFPAY | END 2024-08-27 07:20 | disposition home or self-care (01) | LOC: HO.CT 07:19 | PROVIDERS: PCP Physician Assistant; Visit Provider Physician Assistant | DX: S32.000A Wedge compression fracture of unspecified lumbar vertebra, initial encounter for closed fracture (principal) | CPT/HCPCS: 72131 ==

== ENCOUNTER → 2024-08-27 07:20 | Outpatient (BNV) | payer OTHER, SELFPAY | PROVIDERS: PCP Physician Assistant; Visit Provider Radiology Diagnostic Radiology | DX: S32.040S Wedge compression fracture of fourth lumbar vertebra, sequela (principal); M51.369 Other intervertebral disc degeneration, lumbar region without mention of lumbar back pain or lower extremity pain | CPT/HCPCS: 72131 ==